=== PATIENT | female | born 1950 | race Caucasian/White ===

== ENCOUNTER 2017-03-06 12:54 | Observation (INO) | payer MEDICARE ==
--- NOTE | 2017-03-06 13:30 | ED ---
General Adult HPI - General Chief complaint: Arrhythmia/Palpitations Stated complaint: Irregular Heartbeat/Tachycardia Time Seen by Provider: 03/06/17 13:18 Source: patient, family, RN notes reviewed Mode of arrival: ambulatory Limitations: no limitations - History of Present Illness Initial comments: Patient is a pleasant 66-year-old female presenting to the emergency Department with complaints of palpitations. Symptoms have been ongoing for around 10 days. Patient did see her doctor and was placed on the monitor. Monitor reports today did show patient had an episode of atrial fibrillation. Patient did have some associated jaw pain today which she is not having quite a while. Patient took one nitro that resolved the jaw pain. Patient is currently symptom -free. - Related Data Home Medications Medication Instructions Recorded Confirmed Aspirin 81 mg PO DAILY 12/31/13 03/06/17 Atenolol [Tenormin] 25 mg PO DAILY 12/31/13 03/06/17 Atorvastatin [Lipitor] 80 mg PO DAILY 03/06/17 03/06/17 Ipratropium/Albuterol Sulfate 1 puff INHALATION RT-QID PRN 03/06/17 03/06/17 [Combivent Respimat Inhaler] Levothyroxine Sodium [Synthroid] 137 mcg PO DAILY 03/06/17 03/06/17 Meloxicam [Mobic] 7.5 mg PO DAILY PRN 03/06/17 03/06/17 Multivitamins, Thera [Multivitamin 1 tab PO DAILY 03/06/17 03/06/17 (formulary)] Nitroglycerin Sl Tabs [Nitrostat] 0.4 mg SUBLINGUAL Q5M PRN 03/06/17 03/06/17 amLODIPine BESYLATE/BENAZEPRIL 1 cap PO DAILY 03/06/17 03/06/17 [amLODIPine BESYLATE/BENAZEPRIL 10-20 mg] Allergies Allergy/AdvReac Type Severity Reaction Status Date / Time No Known Allergies Allergy Verified 03/06/17 13:29 Review of Systems ROS Statement: Those systems with pertinent positive or pertinent negative responses have been documented in the HPI. ROS Other: All systems not noted in ROS Statement are negative. Constitutional: Denies: fever Eyes: Denies: eye pain ENT: Denies: ear pain Respiratory: Denies: cough Cardiovascular: Reports: chest pain, palpitations Endocrine: Reports: fatigue Gastrointestinal: Denies: abdominal pain Genitourinary: Denies: dysuria Musculoskeletal: Denies: back pain Skin: Denies: rash Neurological: Denies: weakness Past Medical History Past Medical History: Hypertension, Myocardial Infarction (SD) History of Any Multi-Drug Resistant Organisms: None Reported Past Surgical History: Appendectomy, Cholecystectomy, Heart Catheterization With Stent, Hysterectomy Past Psychological History: No Psychological Hx Reported Smoking Status: Former smoker Past Alcohol Use History: Occasional Past Drug Use History: None Reported General Exam Limitations: no limitations General appearance: alert, in no apparent distress Head exam: Present: atraumatic Eye exam: Present: normal appearance, PERRL ENT exam: Present: normal oropharynx Neck exam: Present: normal inspection Respiratory exam: Present: normal lung sounds bilaterally Cardiovascular Exam: Present: regular rate, normal rhythm Expanded Peripheral pulses: 2+: Radial (R), Radial (L), Dorsalis Pedis (R), Dorsalis Pedis (L) GI/Abdominal exam: Present: soft. Absent: tenderness Extremities exam: Present: normal inspection. Absent: pedal edema, calf tenderness Neurological exam: Present: alert Psychiatric exam: Present: normal affect, normal mood Skin exam: Present: normal color Course Vital Signs 03/06/17 03/06/17 13:01 14:03 Temperature 97.4 F L Pulse Rate 51 L 47 L Respiratory 18 16 Rate Blood Pressure 130/56 140/65 O2 Sat by Pulse 96 97 Oximetry EKG Findings - EKG Comments: EKG Findings:: Sinus bradycardia 48. For screening AV block TN 218. QRS 84. QT 448. QTC 400. Left axis. Inferior Q waves. Anterior Q waves. No acute ST change. Medical Decision Making - Medical Decision Making Patient reevaluated and resting comfortably in bed. Patient remained symptom- free at this time. Review from rhythm strips from Holter monitor does reveal atrial fibrillation, several episodes. Rate up to 150. Patient and family updated on results and plan. Case was discussed in detail with Dr. Marquez, who will admit for Dr. Mccullough. - Lab Data Result diagrams: 03/06/17 13:35 03/06/17 13:35 Lab Results 03/06/17 03/06/17 03/06/17 Range/Units 13:35 13:35 13:35 WBC 7.4 (3.8-10.6) k/uL RBC 4.76 (3.80-5.40) m/uL Hgb 14.1 (11.4-16.0) gm/dL Hct 42.7 (34.0-46.0) % MCV 89.7 (80.0-100.0) fL MCH 29.5 (25.0-35.0) pg MCHC 32.9 (31.0-37.0) g/dL RDW 13.0 (11.5-15.5) % Plt Count 317 (150-450) k/uL Neutrophils % 54 % Lymphocytes % 35 % Monocytes % 6 % Eosinophils % 2 % Basophils % 1 % Neutrophils # 4.0 (1.3-7.7) k/uL Lymphocytes # 2.6 (1.0-4.8) k/uL Monocytes # 0.5 (0-1.0) k/uL Eosinophils # 0.1 (0-0.7) k/uL Basophils # 0.1 (0-0.2) k/uL PT (9.0-12.0) sec INR (<1.2) APTT (22.0-30.0) sec Sodium 140 (137-145) mmol/L Potassium 4.4 (3.5-5.1) mmol/L Chloride 106 (98-107) mmol/L Carbon Dioxide 22 (22-30) mmol/L Anion Gap 12 mmol/L BUN 28 H (7-17) mg/dL Creatinine 0.82 (0.52-1.04) mg/dL Est GFR (MDRD) Af Amer >60 (>60 ml/min/1.73 sqM) Est GFR (MDRD) Non-Af >60 (>60 ml/min/1.73 sqM) Glucose 103 H (74-99) mg/dL Calcium 9.7 (8.4-10.2) mg/dL Magnesium 1.8 (1.6-2.3) mg/dL Total Bilirubin 0.4 (0.2-1.3) mg/dL AST 22 (14-36) U/L ALT 32 (9-52) U/L Alkaline Phosphatase 72 (38-126) U/L Total Creatine Kinase 62 (30-135) U/L CK-MB (CK-2) 1.4 (0.0-2.4) ng/mL CK-MB (CK-2) Rel Index 2.3 Troponin I <0.012 (0.000-0.034) ng/mL Total Protein 7.3 (6.3-8.2) g/dL Albumin 4.2 (3.5-5.0) g/dL TSH 2.400 (0.465-4.680) mIU/L Free T4 1.16 (0.78-2.19) ng/dL Free T3 pg/mL 3.4 (2.8-5.3) pg/ml 03/06/17 Range/Units 13:35 WBC (3.8-10.6) k/uL RBC (3.80-5.40) m/uL Hgb (11.4-16.0) gm/dL Hct (34.0-46.0) % MCV (80.0-100.0) fL MCH (25.0-35.0) pg MCHC (31.0-37.0) g/dL RDW (11.5-15.5) % Plt Count (150-450) k/uL Neutrophils % % Lymphocytes % % Monocytes % % Eosinophils % % Basophils % % Neutrophils # (1.3-7.7) k/uL Lymphocytes # (1.0-4.8) k/uL Monocytes # (0-1.0) k/uL Eosinophils # (0-0.7) k/uL Basophils # (0-0.2) k/uL PT 10.5 (9.0-12.0) sec INR 1.0 (<1.2) APTT 24.1 (22.0-30.0) sec Sodium (137-145) mmol/L Potassium (3.5-5.1) mmol/L Chloride (98-107) mmol/L Carbon Dioxide (22-30) mmol/L Anion Gap mmol/L BUN (7-17) mg/dL Creatinine (0.52-1.04) mg/dL Est GFR (MDRD) Af Amer (>60 ml/min/1.73 sqM) Est GFR (MDRD) Non-Af (>60 ml/min/1.73 sqM) Glucose (74-99) mg/dL Calcium (8.4-10.2) mg/dL Magnesium (1.6-2.3) mg/dL Total Bilirubin (0.2-1.3) mg/dL AST (14-36) U/L ALT (9-52) U/L Alkaline Phosphatase (38-126) U/L Total Creatine Kinase (30-135) U/L CK-MB (CK-2) (0.0-2.4) ng/mL CK-MB (CK-2) Rel Index Troponin I (0.000-0.034) ng/mL Total Protein (6.3-8.2) g/dL Albumin (3.5-5.0) g/dL TSH (0.465-4.680) mIU/L Free T4 (0.78-2.19) ng/dL Free T3 pg/mL (2.8-5.3) pg/ml - Radiology Data Radiology results: image reviewed (Chest x-ray shows no acute process.) Disposition Clinical Impression: Atrial fibrillation, Chest pain Disposition: ADMITTED IP TO THIS [facility] Referrals: Yosehp Mccullough MD [Primary Care Provider] - 1-2 days Decision Time: 15:16
[2017-03-06 13:47] LABS: Basophils # (A) 0.1 k/uL (0-0.2); Basophils % (A) 1 %; CHCM 33.6; Eosinophils # (A) 0.1 k/uL (0-0.7); Eosinophils % (A) 2 %; HCT 42.7 % (34.0-46.0); HDW 2.49; HGB 14.1 gm/dL (11.4-16.0); Luc # (Auto) 0.17; Luc % (Auto) 2; Lymphocytes # (A) 2.6 k/uL (1.0-4.8); Lymphocytes % (A) 35 %; MCH 29.5 pg (25.0-35.0); MCHC 32.9 g/dL (31.0-37.0); MCV 89.7 fL (80.0-100.0); Monocytes # (A) 0.5 k/uL (0-1.0); Monocytes % (A) 6 %; Neutrophils % (A) 54 %; RBC 4.76 m/uL (3.80-5.40); WBC 7.4 k/uL (3.8-10.6); WBC (Perox) 7.32
[2017-03-06 13:56] LABS: ALT 32 U/L (9-52); AST 22 U/L (14-36); Alkaline Phosphatase 72 U/L (38-126); Anion Gap 12 mmol/L; Blood Urea Nitrogen 28 mg/dL (7-17); Calcium 9.7 mg/dL (8.4-10.2); Carbon Dioxide 22 mmol/L (22-30); Chloride 106 mmol/L (98-107); Glucose 103 mg/dL (74-99); Magnesium 1.8 mg/dL (1.6-2.3); Non-African American GFR(MDRD) >60 (>60 ml/min/1.73 sqM); Partial Thromboplastin Time 24.1 sec (22.0-30.0); Potassium 4.4 mmol/L (3.5-5.1); Prothrombin Time 10.5 sec (9.0-12.0); Sodium 140 mmol/L (137-145); Total Bilirubin 0.4 mg/dL (0.2-1.3); Total Protein 7.3 g/dL (6.3-8.2)
--- NOTE | 2017-03-06 14:06 | XR ---
EXAMINATION TYPE: XR chest 2V DATE OF EXAM: 03/06/2017 COMPARISON: NONE TECHNIQUE: PA and lateral views submitted. HISTORY: Dysrhythmia FINDINGS: The lungs are clear and there is no pneumothorax, pleural effusion, or focal pneumonia. Atheroscler otic change aorta. Biapical pleural thickening. Hypertrophic change of the spine. Surgical clips in t he abdomen noted. IMPRESSION: 1. No acute process.
[2017-03-06 14:12] LABS: Creatine Kinase 62 U/L (30-135)
[2017-03-06 14:24] LABS: Creatine Kinase MB 1.4 ng/mL (0.0-2.4); Troponin I <0.012 ng/mL (0.000-0.034)
[2017-03-06] MEDS ORDERED: NITROGLYCERIN SL TABS 0.4 MG TAB SUBLINGUAL PRN ×2 (15:16→18:43)
[2017-03-06] MEDS ORDERED: HEPARIN SODIUM,PORCINE 5,000 UNIT/ML 1 ML VIAL IV ONE (15:16)
[2017-03-06] MEDS ORDERED: HEPARIN SODIUM,PORCINE 5,000 UNIT/ML 1 ML VIAL IV PRN (15:16)
[2017-03-06] MEDS ORDERED: SODIUM CHLORIDE 0.9% 1,000 ML IV STA (15:28)
[2017-03-06] MEDS ORDERED: HEPARIN SODIUM,PORCINE/D5W PMX 25,000 UNIT in DEXTROSE/WATER 1 500ML.BAG IV SCH (15:30)
--- NOTE | 2017-03-06 18:06 | P.HPIM ---
History of Present Illness H&P Date: 03/06/17 Chief Complaint: palpitation This is a 66 years old very pleasant female patient of Dr. Barney with past medical history of coronary artery disease status post stent in 2004 and 2006, hypertension presents with episodes of palpitation associated with shortness of breath and dizziness the last few minutes, occur spontaneously and resolved by itself worsens with laying flat. Patient was seen by the primary care physician who placed her on event monitor that recorded atrial fibrillation last night when patient was symptomatic. Dr. Barney office call the patient and asked her to report to the ER. 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 She denies any chest pain, shortness of breath, swelling in her extremities. ED reported EKG showing Q waves in lead V1 to V5 with sinus bradycardia and first-degree AV block. potline monitor did show atrial fibrillation with a heart rate of 150 intermittently. Patient was started on heparin drip. Troponin 3 ordered. Cardiology consulted Review of Systems Constitutional: Denies chills, Denies fever, Denies lethargy, Denies malaise, Denies poor appetite, Denies weakness, Denies weight loss Eyes: denies decreased vision, denies diplopia, denies discharge, denies pain Ears: deny: decreased hearing Ears, nose, mouth and throat: Denies dental pain, Denies headache, Denies nasal discharge, Denies nose pain Cardiovascular: Denies chest pain, Denies decreased exercise tolerance, Denies edema, Denies high blood pressure, endorses irregular heart beat, endorses palpitations, Denies paroxysmal nocturnal dyspnea, Respiratory: Denies congestion, Denies cough, Denies cough with sputum, Denies dyspnea, Denies home oxygen, Denies wheezing Gastrointestinal: Denies abdominal pain, Denies change in bowel habits, Denies coffee ground emesis, Denies early satiety, Denies excessive gas, Denies heartburn, Denies hematemesis, Denies hematochezia, Denies loss of appetite, Denies nausea, Denies vomiting Genitourinary: Denies dysuria, Denies flank pain, Denies kidney stones, Denies menorrhagia, Denies urgency, Denies urinary frequency Musculoskeletal: Denies gait dysfunction, Denies limitation of motion, Denies morning stiffness, Denies muscle cramps Integumentary: Denies rash, Denies wounds, Denies brittle nails, Denies change in hair/nails, Denies darkening of skin Neurological: Denies balance difficulties, Denies change in speech, Denies double vision, Denies gait dysfunction, Denies loss of vision, Denies motor disturbance, Denies numbness, Denies paralysis, Denies paresthesias, Denies seizures Psychiatric: Denies anxiety, Denies depression Endocrine: Denies excessive sweating, Denies excessive thirst, Denies high blood sugars, Denies palpitations Hematologic/Lymphatic: Denies easy bruising, Denies lymphadenopathy Past Medical History Past Medical History: Hypertension, Myocardial Infarction (ND) (2004 and 2006) History of Any Multi-Drug Resistant Organisms: None Reported Past Surgical History: Appendectomy, Cholecystectomy, Heart Catheterization With Stent, Hysterectomy Past Psychological History: No Psychological Hx Reported Smoking Status: Former smoker (N 2005, smoked 1 pack in 3 days for 20 years) Past Alcohol Use History: Occasional Past Drug Use History: None Reported - Past Family History Father Family Medical History: Congestive Heart Failure (CHF), Hypertension Mother Family Medical History: Cancer Brother(s) Family Medical History: CVA/TIA Sister(s) Family Medical History: Hypertension Medications and Allergies Home Medications Medication Instructions Recorded Confirmed Type Aspirin 81 mg PO DAILY 12/31/13 03/06/17 History Atenolol [Tenormin] 25 mg PO DAILY 12/31/13 03/06/17 History Atorvastatin [Lipitor] 80 mg PO DAILY 03/06/17 03/06/17 History Ipratropium/Albuterol Sulfate 1 puff INHALATION RT-QID PRN 03/06/17 03/06/17 History [Combivent Respimat Inhaler] Levothyroxine Sodium [Synthroid] 137 mcg PO DAILY 03/06/17 03/06/17 History Meloxicam [Mobic] 7.5 mg PO DAILY PRN 03/06/17 03/06/17 History Multivitamins, Thera [Multivitamin 1 tab PO DAILY 03/06/17 03/06/17 History (formulary)] Nitroglycerin Sl Tabs [Nitrostat] 0.4 mg SUBLINGUAL Q5M PRN 03/06/17 03/06/17 History amLODIPine BESYLATE/BENAZEPRIL 1 cap PO DAILY 03/06/17 03/06/17 History [amLODIPine BESYLATE/BENAZEPRIL 10-20 mg] Allergies Allergy/AdvReac Type Severity Reaction Status Date / Time No Known Allergies Allergy Verified 03/06/17 13:29 Physical Exam Vitals: Vital Signs Temp Pulse Pulse Resp BP BP Pulse Ox 03/06/17 16:19 97.1 F L 55 L 16 119/58 97 03/06/17 15:25 97.8 F 49 L 16 119/70 98 03/06/17 14:03 47 L 16 140/65 97 03/06/17 13:01 97.4 F L 51 L 18 130/56 96 Intake and Output 03/06/17 03/06/17 03/06/17 06:59 14:59 22:59 Intake Total 100 Balance 100 Intake: Oral 100 Other: Voiding Method Toilet Weight 72.575 kg Patient Weight 03/07/17 06:59 Weight 72.575 kg - Constitutional General appearance: cooperative, no acute distress, obese - EENT Eyes: anicteric sclerae, PERRLA, normal appearance ENT: hearing grossly normal - Neck Neck: no lymphadenopathy, normal ROM, no other, no rigidity, no stridor, no thyromegaly - Respiratory Respiratory: bilateral: CTA, negative: diminished, dullness, rales, rhonchi - Cardiovascular Rhythm: regular in sinus bradycardia Heart sounds: normal: S1, S2 Abnormal Heart Sounds: no systolic murmur, no diastolic murmur, no rub, no S3 Gallop, no S4 Gallop, no click, no other - Gastrointestinal General gastrointestinal: normal bowel sounds, soft - Integumentary Integumentary: no rash - Neurologic Neurologic: CNII-XII intact - Musculoskeletal Musculoskeletal: gait normal, strength equal bilaterally - Psychiatric Psychiatric: A&O x's 3, appropriate affect Results CBC & Chem 7: 03/06/17 13:35 03/06/17 13:35 Labs: Abnormal Lab Results - Last 24 Hours (Table) 03/06/17 Range/Units 13:35 BUN 28 H (7-17) mg/dL Glucose 103 H (74-99) mg/dL Thrombosis Risk Factor Assmnt - DVT/VTE Prophylaxis DVT/VTE Prophylaxis: Pharmacologic Prophylaxis ordered Assessment and Plan Plan: #1 palpitation with paroxysmal fibrillation alternating with sinus bradycardia concern for sick sinus syndrome, cardiology evaluation pending, EKG suggests sinus bradycardia with first-degree AV block, continue heparin, echo ordered. Patient may need to be anticoagulated on discharge #2 hypertension- continue lotril #3 CAD s/p stent - continue aspirin, hold atenol due to bradycardia #4 HLD - Continue lipitor #5 DVT prophylaxis - on heparin drip #6 Code - Full code Patient may need 1-2 night as inpatient
[2017-03-06] MEDS ORDERED: MELOXICAM 7.5 MG TAB PO PRN (18:43)
[2017-03-06] MEDS ORDERED: IPRATROPIUM-ALBUTEROL 3 ML NEB INHALATION PRN (18:43)
[2017-03-06] MEDS: NITROGLYCERIN OINT 1 INCH/GM PACKET TOPICAL SCH ×2 (18:53→23:48)
[2017-03-06 21:20] LABS: Creatine Kinase 50 U/L (30-135)
[2017-03-06 21:34] LABS: Troponin I <0.012 ng/mL (0.000-0.034)
[2017-03-07 02:30] LABS: Creatine Kinase 42 U/L (30-135)
[2017-03-07 02:42] LABS: Troponin I <0.012 ng/mL (0.000-0.034)
[2017-03-07 03:08] LABS: Creatine Kinase MB 0.8 ng/mL (0.0-2.4)
[2017-03-07 04:14] LABS: CH 29.5; CHCM 32.1; HCT 39.1 % (34.0-46.0); HDW 2.32; HGB 12.6 gm/dL (11.4-16.0); MCH 29.8 pg (25.0-35.0); MCHC 32.2 g/dL (31.0-37.0); MCV 92.7 fL (80.0-100.0); Mean Platelet Volume 7.9; RBC 4.22 m/uL (3.80-5.40); RDW 14.2 % (11.5-15.5); WBC 7.2 k/uL (3.8-10.6)
[2017-03-07 04:40] LABS: ALT 31 U/L (9-52); AST 36 U/L (14-36); Alkaline Phosphatase 67 U/L (38-126); Anion Gap 8 mmol/L; Blood Urea Nitrogen 27 mg/dL (7-17); Calcium 9.2 mg/dL (8.4-10.2); Carbon Dioxide 23 mmol/L (22-30); Chloride 109 mmol/L (98-107); Cholesterol 154 mg/dL (<200); Glucose 99 mg/dL (74-99); HDL Cholesterol 57 mg/dL (40-60); Non-African American GFR(MDRD) >60 (>60 ml/min/1.73 sqM); Sodium 140 mmol/L (137-145); Total Bilirubin 0.4 mg/dL (0.2-1.3); Total Protein 6.1 g/dL (6.3-8.2)
[2017-03-07] MEDS: NITROGLYCERIN OINT 1 INCH/GM PACKET TOPICAL SCH (05:55)
[2017-03-07] MEDS ORDERED: LEVOTHYROXINE 137 MCG TAB PO SCH (06:30)
[2017-03-07] MEDS ORDERED: ATORVASTATIN 80 MG TAB PO SCH (09:00)
[2017-03-07] MEDS ORDERED: ASPIRIN 325 MG TAB PO SCH (09:00)
[2017-03-07] MEDS ORDERED: ASPIRIN 81 MG PO SCH (09:00)
[2017-03-07 10:14] VITALS: TEMP 97.1
--- NOTE | 2017-03-07 11:36 | ECHOF ---
Referral Reason:afib, assess heart function MEASUREMENTS -------- HEIGHT: 172.7 cm WEIGHT: 73.0 kg BP: 119/58 RVIDd: 2.8 cm (< 3.3) IVSd: 0.8 cm (0.6 - 1.1) LVIDd: 4.7 cm (3.9 - 5.3) LVPWd: 1.2 cm (0.6 - 1.1) IVSs: 1.4 cm LVIDs: 3.9 cm LVPWs: 1.2 cm LA Diam: 3.7 cm (2.7 - 3.8) LAESV Index (A-L): 36.81 ml/m Ao Diam: 2.5 cm (2.0 - 3.7) AV Cusp: 1.5 cm (1.5 - 2.6) LA Diam: 4.2 cm (2.7 - 3.8) MV EXCURSION: 25.813 mm (> 18.000) MV EF SLOPE: 97 mm/s (70 - 150) EPSS: 0.3 cm MV E Sid: 0.55 m/s MV DecT: 336 ms MV A Sid: 0.74 m/s MV E/A Ratio: 0.74 RAP: 5.00 mmHg RVSP: 17.01 mmHg FINDINGS -------- Sinus rhythm. This was a technically good study. LV size, wall thickness and systolic function are normal, with an EF greater than 55%. The left nano tricular size is normal. The right ventricle is normal in size. LA is moderately dilated 34-39 ml/m2 The right atrial size is normal. The aortic valve is trileaflet, and appears structurally normal. No aortic stenosis or regurgitation. Mild mitral regurgitation is present. Mild tricuspid regurgitation present. There is no evidence of pulmonary hypertension. The right v entricular systolic pressure, as measured by Doppler, is 17.01mmHg. There is no pulmonic regurgitation present. The aortic root size is normal. There is no pericardial effusion. CONCLUSIONS -------- 1. LV size, wall thickness and systolic function are normal, with an EF greater than 55%. 2. The left ventricular size is normal. 3. LA is moderately dilated 34-39 ml/m2 4. The aortic valve is trileaflet, and appears structurally normal. No aortic stenosis or regurgitati on. 5. Mild mitral regurgitation is present. 6. Mild tricuspid regurgitation present. 7. There is no evidence of pulmonary hypertension. 8. The right ventricular systolic pressure, as measured by Doppler, is 17.01mmHg. 9. There is no pulmonic regurgitation present. 10. The aortic root size is normal. 11. There is no pericardial effusion. BLUE LINE TRIMMER: Sandi Hunter RDCS
--- NOTE | 2017-03-07 11:44 | P.CRDCN ---
History of Present Illness Consult date: 03/07/17 Requesting physician: Jessica Kraus Consult reason: chest pain, atrial fibrillation Chief complaint: Palpitations, chest discomfort History of present illness: This is a pleasant 66-year-old female with history of hypertension, hyperlipidemia, hypothyroidism, coronary artery disease with prior stent placement in 2004, 2 stents were also placed in 2006. 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 She does state that her most recent stress test was performed in November of this year. Patient had been experiencing intermittent symptoms of palpitations and heart racing, and for this reason her primary care physician had recommended that she wear an event monitor. She is approximately 10 days into the event monitor, when she received a call from her physician's office stating that she needed to come to the emergency room because her heart was irregular. On review of the event monitor tracings it does appear that the patient is having intermittent episodes of atrial fibrillation, her heart rate however when she is in normal sinus rhythm is quite slow. Patient also states that a couple of days ago she was experiencing some pressure in her chest with radiation to her jaw, she states that she gets these symptoms off and on. EKG on presentation here showed a sinus bradycardia with a first-degree AV block. Chest x-ray did not reveal any acute process. Blood pressure 130/56, heart rate in the 40s to 50s, 96% on room air. White blood cell count 7.2, hemoglobin 12.6, platelet count 252. Sodium 140, potassium 4.0, chloride 109, CO2 23, BUN 27, creatinine 0.9. Troponins have been negative 3. TSH 2.4, free T4 1.1. At the time of our examination this morning, patient denies any palpitations, no chest discomfort, breathing is overall stable. Past Medical History Past Medical History: Hypertension, Myocardial Infarction ([place]) (2004 and 2006) Additional Past Medical History / Comment(s): HAD EVENT MONITOR PRIOR TO ADMISSION TO MONITOR FOR AFIB Last Myocardial Infarction Date:: 2004 History of Any Multi-Drug Resistant Organisms: None Reported Past Surgical History: Appendectomy, Cholecystectomy, Heart Catheterization With Stent, Hysterectomy Past Anesthesia/Blood Transfusion Reactions: Postoperative Nausea & Vomiting ( PONV) Date of Last Stent Placement:: 2006 Past Psychological History: No Psychological Hx Reported Smoking Status: Former smoker (N 2004, smoked 1 pack in 3 days for 20 years) Past Alcohol Use History: Occasional Past Drug Use History: None Reported - Past Family History Father Family Medical History: Congestive Heart Failure (CHF), Hypertension Mother Family Medical History: Cancer Brother(s) Family Medical History: CVA/TIA Sister(s) Family Medical History: Hypertension Medications and Allergies Home Medications Medication Instructions Recorded Confirmed Type Aspirin 81 mg PO DAILY 12/31/13 03/06/17 History Atenolol [Tenormin] 25 mg PO DAILY 12/31/13 03/06/17 History Atorvastatin [Lipitor] 80 mg PO DAILY 03/06/17 03/06/17 History Ipratropium/Albuterol Sulfate 1 puff INHALATION RT-QID PRN 03/06/17 03/06/17 History [Combivent Respimat Inhaler] Levothyroxine Sodium [Synthroid] 137 mcg PO DAILY 03/06/17 03/06/17 History Meloxicam [Mobic] 7.5 mg PO DAILY PRN 03/06/17 03/06/17 History Multivitamins, Thera [Multivitamin 1 tab PO DAILY 03/06/17 03/06/17 History (formulary)] Nitroglycerin Sl Tabs [Nitrostat] 0.4 mg SUBLINGUAL Q5M PRN 03/06/17 03/06/17 History amLODIPine BESYLATE/BENAZEPRIL 1 cap PO DAILY 03/06/17 03/06/17 History [amLODIPine BESYLATE/BENAZEPRIL 10-20 mg] Allergies Allergy/AdvReac Type Severity Reaction Status Date / Time No Known Allergies Allergy Verified 03/06/17 13:29 Physical Exam Vitals: Vital Signs Temp Pulse Pulse Resp BP BP Pulse Ox 03/07/17 08:00 97.1 F L 49 L 17 129/63 97 03/07/17 04:00 97.8 F 50 L 16 106/52 97 03/07/17 00:00 97.3 F L 51 L 16 106/56 96 03/06/17 20:00 97.7 F 50 L 16 133/66 94 L 03/06/17 16:19 97.1 F L 55 L 16 119/58 97 03/06/17 15:25 97.8 F 49 L 16 119/70 98 03/06/17 14:03 47 L 16 140/65 97 03/06/17 13:01 97.4 F L 51 L 18 130/56 96 Intake and Output 03/06/17 03/07/17 03/07/17 22:59 06:59 14:59 Intake Total 100 540.584 20 Balance 100 540.584 20 Intake: Intake, IV Titration 420.584 20 Amount Heparin Sodium,Porcine/ 320.584 D5w Pmx 25,000 unit In Dextrose/Water 1 500ml. bag @ 12 UNITS/KG/HR 17. 41 mls/hr IV .Q24H MICHELE Rx #:[id number] Sodium Chloride 0.9% 1, 100 20 000 ml @ 20 mls/hr IV . Q24H STA Rx#:[id number] Oral 100 120 Other: Voiding Method Toilet Toilet # Voids 1 Weight 73.3 kg PHYSICAL EXAMINATION: HEENT: Head is atraumatic, normocephalic. Pupils equal, round. Neck is supple. There is no elevated jugular venous pressure. HEART EXAMINATION: Heart S1, S2 normal. No murmur or gallop heard. CHEST EXAMINATION: Lungs are clear to auscultation and precussion. No chest wall tenderness is noted on palpation or with deep breathing. ABDOMEN: Soft, nontender. Bowel sounds are heard. No organomegaly noted. EXTREMITIES: 2+ peripheral pulses with no evidence of peripheral edema and no calf tenderness noted. NEUROLOGIC patient is awake, alert and oriented -3. . Results 03/07/17 03:53 03/07/17 03:53 Cardiac Enzymes 03/06/17 03/06/17 03/06/17 Range/Units 13:35 13:35 20:18 AST 22 (14-36) U/L CK-MB (CK-2) 1.4 1.0 (0.0-2.4) ng/mL Troponin I <0.012 <0.012 (0.000-0.034) ng/mL 03/07/17 03/07/17 Range/Units 01:55 03:53 AST 36 (14-36) U/L CK-MB (CK-2) 0.8 (0.0-2.4) ng/mL Troponin I <0.012 (0.000-0.034) ng/mL Coagulation 03/06/17 03/06/17 03/07/17 Range/Units 13:35 21:44 03:53 PT 10.5 (9.0-12.0) sec APTT 24.1 55.1 H 45.6 H (22.0-30.0) sec 03/07/17 Range/Units 09:36 PT (9.0-12.0) sec APTT 51.9 H (22.0-30.0) sec Lipids 03/07/17 Range/Units 03:53 Triglycerides 79 (<150) mg/dL Cholesterol 154 (<200) mg/dL HDL Cholesterol 57 (40-60) mg/dL CBC 03/06/17 03/07/17 Range/Units 13:35 03:53 WBC 7.4 7.2 (3.8-10.6) k/uL RBC 4.76 4.22 (3.80-5.40) m/uL Hgb 14.1 12.6 (11.4-16.0) gm/dL Hct 42.7 39.1 (34.0-46.0) % Plt Count 317 252 (150-450) k/uL Comprehensive Metabolic Panel 03/06/17 03/07/17 Range/Units 13:35 03:53 Sodium 140 140 (137-145) mmol/L Potassium 4.4 4.0 (3.5-5.1) mmol/L Chloride 106 109 H (98-107) mmol/L Carbon Dioxide 22 23 (22-30) mmol/L BUN 28 H 27 H (7-17) mg/dL Creatinine 0.82 0.90 (0.52-1.04) mg/dL Glucose 103 H 99 (74-99) mg/dL Calcium 9.7 9.2 (8.4-10.2) mg/dL AST 22 36 (14-36) U/L ALT 32 31 (9-52) U/L Alkaline Phosphatase 72 67 (38-126) U/L Total Protein 7.3 6.1 L (6.3-8.2) g/dL Albumin 4.2 3.4 L (3.5-5.0) g/dL Current Medications Generic Name Dose Route Start Last Admin Trade Name Freq PRN Reason Stop Dose Admin Albuterol/Ipratropium 3 ml 03/06/17 18:43 Duoneb 0.5 Mg-3 Mg/3 Ml Soln INHALATION RT-QID PRN sob Aspirin 81 mg 03/07/17 09:00 03/07/17 10:02 Aspirin PO 81 mg DAILY MICHELE Administration Atorvastatin Calcium 80 mg 03/07/17 09:00 03/07/17 10:02 Lipitor PO 80 mg DAILY MICHELE Administration Heparin Sodium (Porcine) 0 unit 03/06/17 15:16 Heparin IV Q6HR PRN Low PTT Protocol Heparin Sodium/Dextrose 25,000 500 mls @ 17.41 mls/hr 03/06/17 15:30 05:02 unit/ IV Solution IV 14 units/kg/hr .Q24H MICHELE 20.32 mls/hr Protocol Titration 12 UNITS/KG/HR Sodium Chloride 1,000 mls @ 20 mls/hr 03/06/17 15:28 03/06/17 15:36 Saline 0.9% IV 03/07/17 15:27 20 mls/hr .Q24H STA Administration Levothyroxine Sodium 137 mcg 03/07/17 06:30 03/07/17 06:25 Synthroid PO 137 mcg DAILY@0630 [facility] Administration Meloxicam 7.5 mg 03/06/17 18:43 Mobic PO DAILY PRN Pain Multivitamins 1 each 03/07/17 12:00 Theragran PO DAILY@1200 [facility] Nitroglycerin 0.4 mg 03/06/17 18:43 Nitrostat SUBLINGUAL Q5M PRN Chest Pain Intake and Output 03/06/17 03/07/17 03/07/17 22:59 06:59 14:59 Intake Total 100 540.584 20 Balance 100 540.584 20 Intake: Intake, IV Titration 420.584 20 Amount Heparin Sodium,Porcine/ 320.584 D5w Pmx 25,000 unit In Dextrose/Water 1 500ml. bag @ 12 UNITS/KG/HR 17. 41 mls/hr IV .Q24H MICHELE Rx #:[id number] Sodium Chloride 0.9% 1, 100 20 000 ml @ 20 mls/hr IV . Q24H STA Rx#:[id number] Oral 100 120 Other: Voiding Method Toilet Toilet # Voids 1 Weight 73.3 kg 03/07/17 03:53 03/07/17 03:53 EKG Interpretations (text) EKG shows a sinus bradycardia with first-degree AV block Assessment and Plan Plan: Assessment and plan #1 atrial fibrillation, new onset, paroxysmal in nature. #2 known history of coronary artery disease with prior stent placement in 2004 in 2006 #3 hypertension history #4 hyperlipidemia #5 hypothyroidism Plan We will obtain an echocardiogram with Doppler study. We will also discontinue the patient's IV heparin and start the patient on Eliquis 5 mg one tablet by mouth twice a day. We will discontinue her atenolol and start the patient on Lopressor 12-1/2 mg one tablet by mouth twice a day. Decrease Lipitor to 40 mg daily, discontinue Mobic, continue baby aspirin daily, obtain results of stress test performed at [facility] in November, we will also start the patient on Rythmol 150 mg by mouth twice a day. She was seen in consultation by DR KEATON Zafar, patient was told she may be able to be discharged home later today to follow-up with him in the office one week post discharge. DNP note has been reviewed, I agree with a documented findings and plan of care. Patient was seen and examined.
[2017-03-07] MEDS ORDERED: APIXABAN 5 MG TAB PO SCH (11:45)
[2017-03-07] MEDS ORDERED: METOPROLOL TARTRATE 12.5 MG TAB PO SCH (11:45)
[2017-03-07] MEDS ORDERED: PROPAFENONE 150 MG TAB PO SCH (11:45)
[2017-03-07] MEDS ORDERED: MULTIVITAMINS, THERA 1 EACH TAB PO SCH (12:00)
[2017-03-07 13:37] VITALS: BP 129/53; PULSE 58; RESP 18
--- NOTE | 2017-03-07 13:47 | P.DS ---
Providers Date of admission: 03/06/17 15:18 Expected date of discharge: 03/07/17 Attending physician: Jessica Kraus MD Consults: 03/06/17 15:16 Consult Physician Urgent Consulting Provider: Jun Flannery Consult Reason/Comments: a fib, cp Do you want consulting provider notified?: Yes Primary care physician: [facility] Course: This is a 66 years old very pleasant female patient of Dr. Barney with past medical history of coronary artery disease status post stent in 2004 and 2006, hypertension presents with episodes of palpitation associated with shortness of breath and dizziness the last few minutes, occur spontaneously and resolved by itself worsens with laying flat. Patient was seen by the primary care physician who placed her on event monitor that recorded atrial fibrillation last night when patient was symptomatic. Dr. Barney office call the patient and asked her to report to the ER. Patient states that she cannot do anything when she has the symptoms and has not seen a rayon tester recently. She denies any chest pain, shortness of breath, swelling in her extremities. ED reported EKG showing Q waves in lead V1 to V5 with sinus bradycardia and first-degree AV block. playground monitor did show atrial fibrillation with a heart rate of 150 intermittently. Patient was started on heparin drip. Troponin 3 ordered. Cardiology consulted 03/07: Echocardiogram reveals EF of 55%, LA moderately dilated at 34-39, mild mitral regurgitation, mild tricuspid regurgitation. No pulmonary hypertension. Troponins have been negative on 3 draws. Triglycerides 79, cholesterol 154, LDL 81, HDL 57. TSH was normal at 2.4 Patient has been seen by cardiology and heparin drip was discontinued. Patient started on eliquis 5 mg twice daily. Atenolol was discontinued and patient started on Lopressor 12.5 mg twice daily, Rythmol 150 mg twice daily. Lipitor was decreased from 80 mg to 40 mg. Patient 's continue baby aspirin and Mobic was discontinued. Patient has converted to sinus rhythm. Patient denies any complaints at this time. No chest pain, shortness of breath, lightheadedness or dizziness. Patient will be discharged home today in stable condition. Discharge diagnoses: #1 palpitation with paroxysmal fibrillation alternating with sinus bradycardia with first-degree AV block #2 hypertension #3 CAD s/p stent #4 HLD Discharge plan: Home Impression and plan of care have been directed as dictated by the signing physician. Allyn Crouch nurse practitioner acting as scribe for signing physician.t Patient Condition at Discharge: Good Plan - Discharge Summary Discharge Rx Participant: No New Discharge Prescriptions: New Apixaban [Eliquis] 5 mg PO BID #60 tab Atorvastatin [Lipitor] 40 mg PO HS #30 tab Metoprolol Tartrate [Lopressor] 12.5 mg PO BID #60 tab Propafenone [Rythmol] 150 mg PO BID #60 tab Continue Aspirin 81 mg PO DAILY Nitroglycerin Sl Tabs [Nitrostat] 0.4 mg SUBLINGUAL Q5M PRN PRN Reason: Chest Pain Multivitamins, Thera [Multivitamin (formulary)] 1 tab PO DAILY Ipratropium/Albuterol Sulfate [Combivent Respimat Inhaler] 1 puff INHALATION RT-QID PRN PRN Reason: sob amLODIPine BESYLATE/BENAZEPRIL [amLODIPine BESYLATE/BENAZEPRIL 10-20 mg] 1 cap PO DAILY Levothyroxine Sodium [Synthroid] 137 mcg PO DAILY Discontinued Atenolol [Tenormin] 25 mg PO DAILY Meloxicam [Mobic] 7.5 mg PO DAILY PRN PRN Reason: Pain Atorvastatin [Lipitor] 80 mg PO DAILY Discharge Medication List Aspirin 81 mg PO DAILY 12/31/13 [History] Ipratropium/Albuterol Sulfate [Combivent Respimat Inhaler] 1 puff INHALATION RT- QID PRN 03/06/17 [History] Levothyroxine Sodium [Synthroid] 137 mcg PO DAILY 03/06/17 [History] Multivitamins, Thera [Multivitamin (formulary)] 1 tab PO DAILY 03/06/17 [History ] Nitroglycerin Sl Tabs [Nitrostat] 0.4 mg SUBLINGUAL Q5M PRN 03/06/17 [History] amLODIPine BESYLATE/BENAZEPRIL [amLODIPine BESYLATE/BENAZEPRIL 10-20 mg] 1 cap PO DAILY 03/06/17 [History] Apixaban [Eliquis] 5 mg PO BID #60 tab 03/07/17 [Rx] Atorvastatin [Lipitor] 40 mg PO HS #30 tab 03/07/17 [Rx] Metoprolol Tartrate [Lopressor] 12.5 mg PO BID #60 tab 03/07/17 [Rx] Propafenone [Rythmol] 150 mg PO BID #60 tab 03/07/17 [Rx] Follow up Appointment(s)/Referral(s): [facility] [Provider Group] - 1 Week Yoseph Mccullough MD [Primary Care Provider] - 1 Week Discharge Disposition: HOME SELF-CARE
[2017-03-07] MEDS ORDERED: ATORVASTATIN 40 MG TAB PO SCH (21:00)
== END 2017-03-07 15:41 | disposition home or self-care (01) ==
LOC: EC 12:54 → 6SEL 15:18
PROVIDERS: ADMIT Internal Medicine; ATTEND Internal Medicine
DX: I48.0 Paroxysmal atrial fibrillation (principal); I44.0 Atrioventricular block, first degree; I10 Essential (primary) hypertension; I25.10 Atherosclerotic heart disease of native coronary artery without angina pectoris; Z95.5 Presence of coronary angioplasty implant and graft; E03.9 Hypothyroidism, unspecified; E78.5 Hyperlipidemia, unspecified; R68.84 Jaw pain; I25.2 Old myocardial infarction; Z79.899 Other long term (current) drug therapy; Z79.82 Long term (current) use of aspirin; Z87.891 Personal history of nicotine dependence
CPT/HCPCS: 99285; 96376 ×2; 96366 ×2; 96365; 36415; 93005; 93306; 84439; 84481; 80061; 80053 ×2; 82550 ×2; 82553 ×2; 83735; 84443; 84484 ×2; 85025; 85027; 85049; 85610; 85730 ×2; 71020; G0378 ×2; J1644 ×2

== ENCOUNTER 2017-11-25 15:23 | Emergency (ER) | payer MEDICARE ==
--- NOTE | 2017-11-25 17:01 | XR ---
EXAMINATION TYPE: XR chest 2V DATE OF EXAM: 11/25/2017 COMPARISON: 03/06/2017 INDICATION: Syncope TECHNIQUE: Frontal and lateral views of the chest are obtained. FINDINGS: The heart size is normal. The pulmonary vasculature is normal. The lungs are clear. EKG leads overlie the chest. IMPRESSION: 1. No acute pulmonary process.
[2017-11-25 17:10] LABS: Basophils % (A) 0 %; Eosinophils # (A) 0.1 k/uL (0-0.7); Eosinophils % (A) 1 %; HGB 13.9 gm/dL (11.4-16.0); Lymphocytes # (A) 1.9 k/uL (1.0-4.8); Lymphocytes % (A) 23 %; MCH 28.4 pg (25.0-35.0); MCHC 32.2 g/dL (31.0-37.0); MCV 88.1 fL (80.0-100.0); Mean Platelet Volume 7.2; Monocytes # (A) 0.5 k/uL (0-1.0); Monocytes % (A) 5 %; Neutrophils # (A) 5.8 k/uL (1.3-7.7); Neutrophils % (A) 69 %; Platelet Count 277 k/uL (150-450); RBC 4.88 m/uL (3.80-5.40); RDW 13.4 % (11.5-15.5); WBC 8.5 k/uL (3.8-10.6)
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
[2017-11-25 17:27] LABS: Creatine Kinase 168 U/L (30-135); D-Dimer 0.55 mg/L FEU (<0.60); Partial Thromboplastin Time 25.6 sec (22.0-30.0); Prothrombin Time 9.9 sec (9.0-12.0)
[2017-11-25 17:28] LABS: Albumin 4.8 g/dL (3.5-5.0); Potassium 4.5 mmol/L (3.5-5.1); Total Bilirubin 0.4 mg/dL (0.2-1.3); Total Protein 7.8 g/dL (6.3-8.2)
[2017-11-25 17:40] LABS: Creatine Kinase MB 2.4 ng/mL (0.0-2.4); Troponin I <0.012 ng/mL (0.000-0.034)
[2017-11-25 18:21] VITALS: RESP 18
[2017-11-25 18:48] VITALS: BP 132/61; PULSE 58; TEMP 97.6
== END 2017-11-25 18:46 | disposition home or self-care (01) ==
LOC: EC 15:23
DX: I48.91 Unspecified atrial fibrillation (principal); R00.1 Bradycardia, unspecified; R55 Syncope and collapse; I10 Essential (primary) hypertension; I25.2 Old myocardial infarction; Z87.891 Personal history of nicotine dependence; Z79.82 Long term (current) use of aspirin; Z79.899 Other long term (current) drug therapy; Z95.5 Presence of coronary angioplasty implant and graft; Z82.49 Family history of ischemic heart disease and other diseases of the circulatory system
CPT/HCPCS: 36415; 71046; 80053; 82550; 82553; 84484; 85025; 85379; 85610; 85730; 99284

== ENCOUNTER 2020-12-16 17:38 | Inpatient (IN) | payer MEDICARE ==
[2020-12-16 18:54] LABS: Basophils # (A) 0.1 k/uL (0-0.2); Basophils % (A) 1 %; Eosinophils # (A) 0.1 k/uL (0-0.7); Eosinophils % (A) 1 %; HCT 40.8 % (34.0-46.0); HGB 13.6 gm/dL (11.4-16.0); Lymphocytes # (A) 2.6 k/uL (1.0-4.8); Lymphocytes % (A) 27 %; MCH 30.4 pg (25.0-35.0); MCHC 33.4 g/dL (31.0-37.0); MCV 91.2 fL (80.0-100.0); Mean Platelet Volume 7.4; Monocytes # (A) 0.5 k/uL (0-1.0); Monocytes % (A) 5 %; Neutrophils # (A) 6.3 k/uL (1.3-7.7); Neutrophils % (A) 65 %; Platelet Count 302 k/uL (150-450); RBC 4.48 m/uL (3.80-5.40); RDW 14.2 % (11.5-15.5); WBC 9.8 k/uL (3.8-10.6)
[2020-12-16 19:02] LABS: Partial Thromboplastin Time 25.4 sec (22.0-30.0); Prothrombin Time 10.4 sec (9.0-12.0)
[2020-12-16 19:21] LABS: Albumin 4.6 g/dL (3.5-5.0); Calcium 9.8 mg/dL (8.4-10.2); Potassium 4.1 mmol/L (3.5-5.1); Total Bilirubin 0.3 mg/dL (0.2-1.3); Total Protein 7.2 g/dL (6.3-8.2)
--- NOTE | 2020-12-16 19:42 | ED ---
Chest Pain HPI - General Chief Complaint: Chest Pain Stated Complaint: chest tightness Time Seen by Provider: 12/16/20 18:23 Source: patient Mode of arrival: ambulatory Limitations: no limitations - History of Present Illness Initial Comments: Is a 70-year-old female with a history of CAD, hypertension, H of fibrillation, hypothyroid who presents for department for an episode of lightheadedness and chest pain. The patient states that she was sitting on the couch when she started to feel lightheaded like she was given pass out. She states that she d idn't little bit diaphoretic at the time. She states that this resolved however shortly afterwards she developed some chest tightness that she states radiated up into her jaw. This persisted and she did end up taking 2 nitroglycerin tablets which then resolved her symptoms. She states that she does not currently have any chest discomfort. She denies any shortness of breath. No nausea, vomiting, or diarrhea. No abdominal pain. She denies any other complaints this time. Patient does have a significant history for CAD with stents placed. She states that she has had a stress test within the last year that was normal. She follows with Dr. Lugo. - Related Data Home Medications Medication Instructions Recorded Confirmed Aspirin 81 mg PO DAILY 12/31/13 12/16/20 Ipratropium/Albuterol Sulfate 1 puff INHALATION RT-QID PRN 03/06/17 12/16/20 [Combivent Respimat Inhaler] Nitroglycerin Sl Tabs [Nitrostat] 0.4 mg SUBLINGUAL Q5M PRN 03/06/17 12/16/20 amLODIPine BESYLATE/BENAZEPRIL 1 cap PO DAILY 03/06/17 12/16/20 [amLODIPine BESYLATE/BENAZEPRIL 10-20 MG] Atorvastatin Calcium [Lipitor] 80 mg PO HS 12/16/20 12/16/20 Levothyroxine Sodium [Synthroid] 150 mcg PO DAILY 12/16/20 12/16/20 Propafenone [Rythmol] 75 mg PO BID 12/16/20 12/16/20 Previous Rx's Medication Instructions Recorded Apixaban [Eliquis] 5 mg PO BID #60 tab 03/07/17 Allergies Allergy/AdvReac Type Severity Reaction Status Date / Time No Known Allergies Allergy Verified 12/16/20 18:46 Review of Systems ROS Statement: Those systems with pertinent positive or pertinent negative responses have been documented in the HPI. ROS Other: All systems not noted in ROS Statement are negative. EKG Findings - EKG Comments: EKG Findings:: EKG showing sinus bradycardia with a rate of 56. No abnormal ST segment changes. T-wave inversions in lead 3 and aVF QTC is 411. Other intervals normal. No ectopy. Past Medical History Past Medical History: Atrial Fibrillation, Hypertension, Myocardial Infarction (NE) Additional Past Medical History / Comment(s): HAD EVENT MONITOR PRIOR TO ADMISSION TO MONITOR FOR AFIB Last Myocardial Infarction Date:: 2004 History of Any Multi-Drug Resistant Organisms: None Reported Past Surgical History: Appendectomy, Cholecystectomy, Heart Catheterization With Stent, Hysterectomy Past Anesthesia/Blood Transfusion Reactions: Postoperative Nausea & Vomiting (PONV) Date of Last Stent Placement:: 2006 Past Psychological History: No Psychological Hx Reported Smoking Status: Never smoker Past Alcohol Use History: Occasional Past Drug Use History: None Reported - Past Family History Mother Family Medical History: Cancer, Deep Vein Thrombosis (DVT) Brother(s) Family Medical History: Cancer Father Family Medical History: Congestive Heart Failure (CHF), Hypertension Sister(s) Family Medical History: Hypertension General Exam - General Exam Comments Initial Comments: Constitutional: Awake alert Appears comfortable Head: Normocephalic atraumatic Eyes: no conjunctival injection No scleral icterus EOMI Neck: No JVD Supple Heart: Regular rate rhythm normal S1-S2 no murmurs Lungs: Clear to auscultation bilaterally No wheezing No rales Abdomen: Soft nondistended nontender Extremities: Non edematous DP pulses intact Radial pulses intact Neuro: A&Ox3 No focal neurologic deficits Psych: Appropriate mood and affect Limitations: no limitations Course Vital Signs 12/16/20 12/16/20 17:56 18:44 Temperature 98.0 F Pulse Rate 57 L 55 L Respiratory 18 16 Rate Blood Pressure 133/75 128/66 O2 Sat by Pulse 98 100 Oximetry Chest Pain MDM - MDM This is a 70-year-old female who presents emergency department for an episode of chest pain. It resolved after taking 2 nitro at home and EKG was unremarkable for any acute ischemic changes. Troponin was negative times one. Chest x-ray was unremarkable. The patient remained a symptom intact throughout her ED stay. However due to the patient's tachypnea cardiac history the patient is to be watched in the hospital overnight for monitoring, repeat troponins, and cardiac evaluation tomorrow. doctor except the patient for admission. Disposition Clinical Impression: Chest pain Disposition: ADMITTED IP TO THIS HOSP Condition: Stable Referrals: Ivania Stephen MD [Primary Care Provider] - 1-2 days
--- NOTE | 2020-12-16 20:13 | XR ---
EXAMINATION TYPE: XR chest 1V portable DATE OF EXAM: 12/16/2020 CLINICAL HISTORY: cp. TECHNIQUE: Portable frontal view of the chest. COMPARISON: 11/25/2017 FINDINGS: The cardiomediastinal silhouette is within normal limits for size. Pulmonary vasculature i s normal. There is no focal air space opacity. No pleural effusion. No pneumothorax seen. No acute d isplaced osseous fracture. IMPRESSION: No acute cardiopulmonary process.
[2020-12-16] MEDS ORDERED: HEPARIN SODIUM 1,000 UN/ML (10ML VL) IV ONE (20:19)
[2020-12-16] MEDS ORDERED: HEPARIN SODIUM 1,000 UN/ML (10ML VL) IV PRN (20:19)
[2020-12-16] MEDS ORDERED: ASPIRIN 81 MG PO STA (20:21)
[2020-12-16] MEDS ORDERED: NITROGLYCERIN SL TABS 0.4 MG TAB SUBLINGUAL PRN (20:23)
[2020-12-16] MEDS ORDERED: HEPARIN SOD,PORK IN 0.45% NACL 25,000 UNIT in 0.45% NACL 1 250ML.BAG IV SCH (20:30)
[2020-12-17 08:09] VITALS: RESP 18; TEMP 98
[2020-12-17] MEDS ORDERED: IPRATROPIUM-ALBUTEROL 3 ML NEB INHALATION PRN (08:46)
[2020-12-17] MEDS ORDERED: ASPIRIN 325 MG TAB PO SCH ×2 (09:00→09:45)
[2020-12-17] MEDS ORDERED: amLODIPine 10 MG TAB PO SCH (09:15)
[2020-12-17] MEDS ORDERED: PROPAFENONE 150 MG TAB PO SCH (09:15)
[2020-12-17] MEDS ORDERED: lisinopriL 20 MG TAB PO SCH (09:15)
[2020-12-17] MEDS ORDERED: APIXABAN 5 MG TAB PO SCH (09:45)
--- NOTE | 2020-12-17 10:20 | CONS ---
CONSULTATION CHIEF COMPLAINT: Chest pain. Conchita is a 70-year-old lady with history of coronary artery disease, status post angioplasty, the first one in 2004 and the second one in 2006, paroxysmal atrial fibrillation, dyslipidemia, hypothyroidism and hypertension who presented to hospital initially with symptoms of dizziness that started yesterday. She felt near-syncopal, and as she was getting ready to come to hospital she had an episode of chest pain as she was getting into the car. She describes it as precordial tightness and pressure without definite radiation to neck, arm or back. Since coming to hospital, her chest pain has resolved, and at the time of my evaluation she is pain-free, hemodynamically stable and in no apparent distress. She has had three sets of cardiac enzymes that are negative. EKG does not reveal ischemic changes. I reviewed her symptomatology, EKG and cardiac enzymes and talked about her treatment options, including cardiac catheterization for definitive diagnosis versus stress testing. Understanding all the issues, she wishes to proceed with a stress test, and if there is ischemia consider cardiac catheterization. I am going to schedule her for a stress echo today. PAST MEDICAL HISTORY: Her past medical history is significant for hypertension, hypothyroidism, paroxysmal atrial fibrillation and coronary artery disease, status post multivessel angioplasty. ALLERGIES: NO KNOWN DRUG ALLERGIES. MEDICATIONS: Medications at home include Lotrel 10/20, Rythmol 75 b.i.d., Synthroid 150 daily, Lipitor 80 daily, aspirin 81, Eliquis 5 b.i.d. and Combivent inhaler. FAMILY HISTORY: Negative for premature coronary artery disease. SOCIAL HISTORY: Negative for current smoking, EtOH abuse or drug abuse. REVIEW OF SYSTEMS: HEENT is unremarkable. CARDIAC: As described above. RESPIRATORY: Negative. GI: Negative. GENITOURINARY: Negative. ALLERGY/IMMUNOLOGY: Negative. SKIN: Negative. MUSCULOSKELETAL: Negative. HEMATOLOGICAL: Negative. DERMATOLOGY: Negative. CONSTITUTIONAL: Negative. ONCOLOGICAL: Negative. WIRELESS SALES MANAGER: Negative. Rest of the system review is not relevant. PHYSICAL EXAMINATION: Comfortable at rest. Afebrile. Heart rate is 60 beats per minute, blood pressure 107/65, respiratory rate 18, oxygen saturation is 96%. There is no jugular venous distention. Carotid upstroke is normal. There is no bruit. Chest exam reveals good air entry bilaterally. Heart exam reveals first and second heart sounds. No gallop. No murmur. No rub. Abdomen is soft, nontender. Examination of extremities did not reveal any edema. Peripheral pulses are felt. WIRELESS SALES MANAGER exam did not reveal focal neurological deficits. LABS: Labs show that the hemoglobin is 13.6, platelet count is 302, potassium is 4.1. Creatinine is 0.93. Troponins are negative. BNP is normal. ASSESSMENT: 1. Precordial chest pain. 2. Paroxysmal atrial fibrillation. 3. Known coronary artery disease, status post multivessel angioplasty. 4. Hypertension. PLAN: I am going to schedule her for a stress echo this morning and decide on further course of action based on the stress test findings. MMODL / IJN: [id number] /
[2020-12-17 14:31] VITALS: BP 124/55; PULSE 64
--- NOTE | 2020-12-17 17:23 | P.HPIM ---
History of Present Illness H&P Date: 12/17/20 Chief Complaint: chest pain HISTORY OF PRESENT ILLNESS: this is a 70-year-old female with a previous medical history significant for hypertension and hypertensive cardiovascular disease, hyperlipidemia, coronary artery disease status post PCI in 2004 and 2006, his tory of paroxysmal atrial fibrillation,hypothyroidism, COPD, patient presented to the emergency department at [facility] yesterday with increased left-sided chest pain pressure radiating to the throat area associated with increased shortness breath, patient stated that she was feeling dizzy lightheaded and almost passed out after that developed to have the chest pain on her way to go to the urgent care so she ended up coming to the ER for evaluation, twelve-lead EKG showed normal sinus rhythm with anteroseptal Q waves, with no acute ST-T wave changes, initial troponin was negative, she was started on heparin drip, aspirin, and she was admitted to the hospital for evaluation by cardiology. Patient stated that she did have a stress test about a year ago that was negative for stress-induced ischemia. REVIEW OF SYSTEMS: Constitutional: No documented fever, no chills, no night sweats. No weight change. No weakness, fatigue or lethargy. No daytime sleepiness. HEENT: No headache. No blurred vision or double vision, no loss of vision. No loss of Hearing, no ringing in the ears, no dizziness. No nasal drainage or congestion. No epistaxis. No sore throat. Lungs:positive for shortness of breath, no cough, no sputum production. No wheezing. Reports dyspnea with activity. Cardiovascular:positive for chest pain, no lower extremity edema. No palpitations. No paroxysmal nocturnal dyspnea. No orthopnea. No lightheadedness or dizziness. No syncopal episodes. Abdominal: Reports no abdominal pain. No nausea, vomiting. No diarrhea. No constipation. No bloody or tarry stools reports loss of appetite. Genitourinary: No dysuria, increased frequency, urgency. No urinary retention. Musculoskeletal: No myalgias. No muscle weakness, no gait dysfunction, no frequent falls. No back pain. No neck pain. Integumentary: No wounds, no lesions. No rash or pruritus. No unusual bruising. No change in hair or nails. Neurologic: No aphasia. No facial droop. No change in mentation. No head injury. No headache. No paralysis. No paresthesia. Psychiatric: No depression. No anxiety. No mood swings. Endocrine: No abnormal blood sugars. No weight change. PAST MEDICAL HISTORY: CAD post-PCI in 2004 and 2006 Hypertension and hypertensive cardiovascular disease. Hyperlipidemia Hypothyroidism COPD. Paroxysmal atrial fibrillation. PAST SURGICAL HISTORY: cholecystectomy. Partial hysterectomy. Left heart catheterization with stents in 2004 and 2006 SOCIAL HISTORY: patient used to smoke about pack every day she smoked for many years and quit many years ago more than 15 years ago, she denies any drug use or abuse, she drinks alcohol occasionally she lives with her . FAMILY HISTORY: father at age 78 from heart failure, mother at age of 87 from lung cancer, patient has one brother with CVA and esophageal cancer patient has 2 sister both have rheumatoid arthritis and hypertension patient has one son with hyperlipidemia and one daughter who is bipolar disorder. PHYSICAL EXAMINATION: General: 70-year-old female laying down in bed in no apparent distress HEENT: Head is atraumatic, normocephalic, pupils were equal round reactive to light and recommendation, extraocular muscle movement were intact, sclera nonicteric, conjunctivae were pale, mucous membranes of the mouth are somewhat dry. Neck: Supple, no JVP, normal carotid upstroke bilaterally, no lymphadenopathy. Chest: Decreased breath sounds at the bases, few rhonchi, no expiratory wheezes, no chest wall tenderness, no intercostal retractions. Heart: First heart sound is normal, second heart sounds normal there is no gallop or murmur or heaves. Abdomen: Soft, nontender, nondistended, positive bowel sounds. Extremities: There is no edema no calf tenderness DP +2 bilaterally. Neurologic examination: Patient is awake alert and oriented X 3, cranial nerves II-12 appear grossly intact, muscle power were 5 out of 5 in upper extremities and 5 out of 5 in bilateral lower extremities, deep tendon reflexes normal bilaterally. ASSESSMENT AND PLAN: 1. chest pain ruled out for acute coronary syndrome. Discontinue heparin drip, continue patient on aspirin 325 milligram orally once every day, continue atorvastatin 80 mg orally once every day, cariology consultation for stress test versus left heart catheterization. 2. History of CAD post-PCI in 2004 and 2006. Continue aspirin 81 mg once every day, Lipitor 80 mg orally once every day. 3. Hypertension and hypertensive cardio vascular disease. Continue patient on Lotrel 10/20 mg orally once every day, monitor the patient blood pressure very closely. 4. Hyperlipidemia. Continue patient on atorvastatin 80 mg orally once every day. Keep LDL cholesterol 55-70. 5. Paroxysmal atrial fibrillation currently in sinus rhythm. Continue propafenone 150 mg half a tablet orally twice every day along with Eliquis 5 mg orally twice every day. 6. hypothyroidism. Continue Synthroid 150 MCG orally once every day. 7. COPD. Continue patient on Spiriva Respimat one puff inhalation every 6 hours as needed. 8. Admit to inpatient. Estimated length of stay 2 midnights. 9. Full code. Past Medical History Past Medical History: Atrial Fibrillation, Hypertension, Myocardial Infarction (CT) Additional Past Medical History / Comment(s): HAD EVENT MONITOR PRIOR TO ADMISSION TO MONITOR FOR AFIB Last Myocardial Infarction Date:: 2004 History of Any Multi-Drug Resistant Organisms: None Reported Past Surgical History: Appendectomy, Cholecystectomy, Heart Catheterization With Stent, Hysterectomy Past Anesthesia/Blood Transfusion Reactions: Postoperative Nausea & Vomiting (PONV) Date of Last Stent Placement:: 2006 Past Psychological History: No Psychological Hx Reported Smoking Status: Never smoker Past Alcohol Use History: Occasional Past Drug Use History: None Reported - Past Family History Mother Family Medical History: Cancer, Deep Vein Thrombosis (DVT) Brother(s) Family Medical History: Cancer Father Family Medical History: Congestive Heart Failure (CHF), Hypertension Sister(s) Family Medical History: Hypertension Medications and Allergies Home Medications Medication Instructions Recorded Confirmed Type Aspirin 81 mg PO DAILY 12/31/13 12/16/20 History Ipratropium/Albuterol Sulfate 1 puff INHALATION RT-QID PRN 03/06/17 12/16/20 History [Combivent Respimat Inhaler] Nitroglycerin Sl Tabs [Nitrostat] 0.4 mg SUBLINGUAL Q5M PRN 03/06/17 12/16/20 History amLODIPine BESYLATE/BENAZEPRIL 1 cap PO DAILY 03/06/17 12/16/20 History [amLODIPine BESYLATE/BENAZEPRIL 10-20 MG] Apixaban [Eliquis] 5 mg PO BID #60 tab 03/07/17 12/16/20 Rx Atorvastatin Calcium [Lipitor] 80 mg PO HS 12/16/20 12/16/20 History Levothyroxine Sodium [Synthroid] 150 mcg PO DAILY 12/16/20 12/16/20 History Propafenone [Rythmol] 75 mg PO BID 12/16/20 12/16/20 History Allergies Allergy/AdvReac Type Severity Reaction Status Date / Time No Known Allergies Allergy Verified 12/16/20 18:46 Physical Exam Vitals: Vital Signs Temp Pulse Pulse Resp BP Pulse Ox 12/17/20 06:00 50 L 20 101/42 96 12/17/20 04:00 49 L 20 109/42 98 12/17/20 03:00 51 L 12/17/20 00:00 49 L 18 115/60 97 12/16/20 22:39 52 L 18 12/16/20 21:00 53 L 18 141/70 97 12/16/20 18:44 55 L 16 128/66 100 12/16/20 17:56 98.0 F 57 L 18 133/75 98 Intake and Output 12/16/20 12/17/20 12/17/20 22:59 06:59 14:59 Other: Voiding Method Toilet Weight 69.853 kg Results CBC & Chem 7: 12/16/20 18:45 12/16/20 18:45 Labs: Abnormal Lab Results - Last 24 Hours (Table) 12/16/20 12/17/20 Range/Units 18:45 03:44 APTT 54.2 H (22.0-30.0) sec Carbon Dioxide 21 L (22-30) mmol/L BUN 25 H (7-17) mg/dL Glucose 104 H (74-99) mg/dL
--- NOTE | 2020-12-17 17:26 | P.DS ---
Providers Date of admission: 12/16/20 20:24 Expected date of discharge: 12/17/20 Attending physician: Ivania Stephen Consults: 12/16/20 20:23 Consult Physician Urgent Consulting Provider: Km Lugo Consult Reason/Comments: chest pain Do you want consulting provider notified?: Yes, Notify in am Primary care physician: Ivania Stephen Hospital Course: HISTORY OF PRESENT ILLNESS: this is a 70-year-old female with a previous medical history significant for hypertension and hypertensive cardiovascular disease, hyperlipidemia, coronary artery disease status post PCI in 2004 and 2006, history of paroxysmal atrial fibrillation,hypothyroidism, COPD, patient presented to the emergency department at [facility] yesterday with increased left-sided chest pain pressure radiating to the throat area associated with increased shortness breath, patient stated that she was feeling dizzy lightheaded and almost passed out after that developed to have the chest pain on her way to go to the urgent care so she ended up coming to the ER for evaluation, twelve-lead EKG showed normal sinus rhythm with anteroseptal Q waves, with no acute ST-T wave changes, initial troponin was negative, she was started on heparin drip, aspirin, and she was admitted to the hospital for evaluation by cardiology. Patient stated that she did have a stress test about a year ago that was negative for stress-induced ischemia. 12/17: patient underwent stress echocardiogram that was negative for stress- induced ischemia and the patient wanted to be discharged home at this point in time, she will be discharged and follow-up with her supplies packer as an outpatient one week, she is also to follow-up with me as an outpatient 1 week. Discharge diagnoses: 1. Chest pain with negative stress test per stress echo 2. History of CAD post-PCI 2004 and 2006 3. Hypertension and hypertensive cardiovascular disease. 4. . Hyperlipidemia. 5. Hypothyroidism. 6. Paroxysmal atrial fibrillation. 7. COPD 3 Patient Condition at Discharge: Stable Plan - Discharge Summary New Discharge Prescriptions: Continue Nitroglycerin Sl Tabs [Nitrostat] 0.4 mg SUBLINGUAL Q5M PRN PRN Reason: Chest Pain amLODIPine BESYLATE/BENAZEPRIL [amLODIPine BESYLATE/BENAZEPRIL 10-20 MG] 1 cap PO DAILY Apixaban [Eliquis] 5 mg PO BID #60 tab Propafenone [Rythmol] 75 mg PO BID Atorvastatin Calcium [Lipitor] 80 mg PO HS No Action Aspirin 81 mg PO DAILY Ipratropium/Albuterol Sulfate [Combivent Respimat Inhaler] 1 puff INHALATION RT-QID PRN PRN Reason: Shortness Of Breath Levothyroxine Sodium [Synthroid] 150 mcg PO DAILY Discharge Medication List Aspirin 81 mg PO DAILY 12/31/13 [History] Ipratropium/Albuterol Sulfate [Combivent Respimat Inhaler] 1 puff INHALATION RT- QID PRN 03/06/17 [History] Nitroglycerin Sl Tabs [Nitrostat] 0.4 mg SUBLINGUAL Q5M PRN 03/06/17 [History] amLODIPine BESYLATE/BENAZEPRIL [amLODIPine BESYLATE/BENAZEPRIL 10-20 MG] 1 cap PO DAILY 03/06/17 [History] Apixaban [Eliquis] 5 mg PO BID #60 tab 03/07/17 [Rx] Atorvastatin Calcium [Lipitor] 80 mg PO HS 12/16/20 [History] Levothyroxine Sodium [Synthroid] 150 mcg PO DAILY 12/16/20 [History] Propafenone [Rythmol] 75 mg PO BID 12/16/20 [History] Follow up Appointment(s)/Referral(s): Ivania Stephen MD [Primary Care Provider] - 1-2 days (Please call office to make an appointment) Km Lugo MD [STAFF PHYSICIAN] - 2 Weeks (Please call office to make appointment) Patient Instructions/Handouts: Angina (DC)
[2020-12-17 20:27] LABS: Chol/HDL Ratio 2.82; LDL Cholesterol,Calculated 72.6 mg/dL (0.0-131.0); VLDL Calculation 20.4 mg/dL (5.00-40.00)
[2020-12-17] MEDS ORDERED: ATORVASTATIN 80 MG TAB PO SCH (21:00)
[2020-12-18] MEDS ORDERED: LEVOTHYROXINE 75 MCG TAB PO SCH (06:30)
--- NOTE | 2020-12-18 12:02 | ECHOS ---
STRESS ECHOCARDIOGRAM INDICATIONS: Chest pain BASELINE HEART RATE: 51 BASELINE BLOOD PRESSURE: 123/52 MAXIMUM HEART RATE: 146 MAXIMUM BLOOD PRESSURE: 232/69 85% MPHR: 128 100% MPHR: 151 METS: 12.3 MAXIMUM STAGE REACHED: 4 TOTAL EXERCISE TIME: 12:09 CLINICAL INFORMATION: Baseline EKG revealed normal sinus rhythm with poor progression of R-waves over precordial leads. Patient walked on a standard Keith protocol for 12 minutes and achieved a maximal heart rate of 146 beats per minute. She developed fatigue and shortness of breath but did not have any angina. Resting heart rate was 51 beats per minute. Resting blood pressure was 123/52. Peak blood pressure was 230/69. The patient had a hypertensive response to exercise. No ST-segment changes to indicate ischemia and no significant arrhythmia. Rare PVCs were noted. By EKG criteria, this is a negative stress test with excellent exercise capacity. Baseline echo images revealed normal wall motion and wall thickening of all segments. At peak exercise there was good augmentation of left ventricular wall motion and wall thickening of all segments, suggesting that there is no evidence of stress-induced ischemia on this study. FINAL IMPRESSION: 1. Excellent exercise capacity with a negative stress test by EKG criteria with mild resting EKG changes. 2. Normal stress echocardiogram with excellent exercise capacity. MMODL / IJN: [id number] /
== END 2020-12-17 18:07 | disposition home or self-care (01) ==
LOC: EC 17:38 → 6NMEDSUR 20:24 → 3SCARD 12-17 07:58
PROVIDERS: ADMIT Internal Medicine; ATTEND Internal Medicine
CPT/HCPCS: 93351; 99285; 96366 ×3; 96376; 96365; 36415; 93005 ×2; 83880; 80061; 80053; 84484 ×2; 85025; 85610; 85730 ×2; 71045; G0378 ×3; J1644 ×2

== ENCOUNTER → 2021-03-17 | Outpatient (CLI) | payer MEDICARE ==
--- NOTE | 2021-03-17 14:00 | BD ---
EXAMINATION TYPE: Axial Bone Density DATE OF EXAM: 03/17/2021 COMPARISON: NONE CLINICAL HISTORY: 70 YR OLD FEMALE....ICD-10 CODE: R93.7 ABNORMAL BD SCREENING Height: 66.4 Weight: 152 FRAX RISK QUESTIONS: NOTHING TO NOTE HERE RISK FACTORS HISTORY OF: Postmenopausal woman: YES, AT ABOUT 53 YRS OLD Hyperparathyroidism: NO Adrenal Insufficiency: NO MEDICATIONS: Prednisone or other steroids: YES, FOR ASTHMA FOR MANY YRS Thyroid Medications: YES, FOR ABOUT 35-40 YRS , SYNTHROID Additional Medications: BP MEDS, STATIN FOR CHOLESTEROL, MULTIVITAMIN Additional History: HYPERTENSION, CHOLESTEROL, THYROID, SEASONAL ASTHMA, ARTHRITIS EXAM MEASUREMENTS: Bone mineral densitometry was performed using the 3Leaf System. Bone mineral density as measured about the Lumbar spine is: ----- L1-L4(G/cm2): 1.103 T Score Values are as follows: ----- L1: -0.9 ----- L2: -2.0 ----- L3: -0.6 ----- L4: 0.4 ----- L1-L4: -0.6 Bone mineral density FIRST DEXA STUDY AT [facility] Bone mineral density about the R hip (g/cm2): 0.967 Bone mineral density about the L hip (g/cm2): 0.998 T Score values are as follows: -----R Neck: -0.5 -----L Neck: -0.7 -----R Total: -0.3 -----L Total: -0.1 Bone mineral density FIRST DEXA STUDY AT [facility] FRAX%S: THERE IS A 12.6% CHANCE FOR A MAJOR OSTEOPOROTIC FX AND A 1.1% FOR HIP......PROBABILITY F OR FX IN 10 YRS TIME IMPRESSION: Normal (Values between +1 and -1 indicate normal bone mass). Consider repeating this study in 5 year s or sooner if there is some new clinical indication. NOTE: T-SCORE=SD OF THE YOUNG ADULT MEAN.
--- NOTE | 2021-03-22 10:59 | MM ---
Reason for exam: screening (asymptomatic). Last mammogram was performed 2 years and 9 months ago. History: Patient is postmenopausal. Physical Findings: A clinical breast exam by your physician is recommended on an annual basis and results should be correlated with mammographic findings. MG 3D Screening Mammo W/Cad Bilateral CC and MLO view(s) were taken. Prior study comparison: June 22, 2018, mammogram, performed at [facility]. June 07, 2017, mammogram, performed at [facility]. The breast tissue is heterogeneously dense. This may lower the sensitivity of mammography. No significant changes when compared with prior studies. ASSESSMENT: Negative, BI-RAD 1 RECOMMENDATION: Routine screening mammogram of both breasts in 1 year.
== END | disposition home or self-care (01) ==
LOC: RADMAMWWP 07:55
PROVIDERS: ATTEND Internal Medicine
DX: Z12.31 Encounter for screening mammogram for malignant neoplasm of breast (principal); M85.88 Other specified disorders of bone density and structure, other site; Z78.0 Asymptomatic menopausal state
CPT/HCPCS: 77063; 77067; 77080

== ENCOUNTER 2021-12-01 08:04 | Day surgery (SDC) | payer MEDICARE ==
[2021-11-29 11:03] VITALS: BMI 23.6
[~2021-12-01 08:04] MED LIST: LACTATED RINGERS 1,000 ML IV SCH
[2021-12-01 08:36] VITALS: RESP 16; TEMP 96.9
[2021-12-01] MEDS ORDERED: LIDOCAINE 1% (10MG/ML) FOR IV START INTRADERMA ONE (08:47)
[2021-12-01] MEDS ORDERED: PROPOFOL 10 MG/ML 20 ML VIAL IV ONE (08:55)
--- NOTE | 2021-12-01 09:20 | P.PCN ---
Date of Procedure: 12/01/21 Procedure(s) Performed: BRIEF HISTORY: Patient is a 71-year-old pleasant white female scheduled for an elective colonoscopy as a part of evaluation of prior history of colon polyps. PROCEDURE PERFORMED: Colonoscopy with snare polypectomy. PREOPERATIVE DIAGNOSIS: History of colon polyps. IV sedation per Anesthesia. PROCEDURE: After informed consent was obtained, the patient, was brought into the endoscopy unit. IV sedation was administered by Anesthesia under continuous monitoring. Digital rectal examination was normal. Initially the Olympus CF-160 flexible video colonoscope was then inserted in the rectum, gradually advanced into the cecum without any difficulty. Careful examination was performed as the scope was gradually being withdrawn. Ileocecal valve and the appendiceal orifice were visualized and appeared normal. Prep was excellent. Mucosa of the cecum 7 mm sessile polyp removed by snare polypectomy. In the transverse colon there was a 5 mm polyp removed by snare polypectomy. Rest of the, ascending colon, transverse colon, descending colon, sigmoid colon, and rectum appeared normal. Scattered sigmoid diverticulosis seen. Retroflexion was performed in the rectum and no lesions were seen. The patient tolerated the procedure well. IMPRESSION: 7 mm cecal polyps is post polypectomy 5 mm transverse colon polyp status post polypectomy Scattered sigmoid diverticula RECOMMENDATIONS: Findings of this examination were discussed with the patient as well as her family. She was advised to follow with the biopsy results. If the biopsy result adenoma she can have a repeat colonoscopy in 5 years..
[2021-12-01 10:08] VITALS: BP 110/64; PULSE 51
== END 2021-12-01 11:37 | disposition home or self-care (01) ==
LOC: ORWHC2ENDO 08:04
PROVIDERS: ATTEND Internal Medicine Gastroenterology
DX: Z12.11 Encounter for screening for malignant neoplasm of colon (principal); D12.0 Benign neoplasm of cecum; D12.3 Benign neoplasm of transverse colon; K57.30 Diverticulosis of large intestine without perforation or abscess without bleeding; Z86.010 Personal history of colon polyps; I48.91 Unspecified atrial fibrillation; K21.9 Gastro-esophageal reflux disease without esophagitis; I25.2 Old myocardial infarction; J45.909 Unspecified asthma, uncomplicated; Z87.891 Personal history of nicotine dependence; M19.90 Unspecified osteoarthritis, unspecified site; Z79.890 Hormone replacement therapy; Z79.01 Long term (current) use of anticoagulants; Z79.82 Long term (current) use of aspirin; Z79.899 Other long term (current) drug therapy
CPT/HCPCS: 88305; 45385; J2704

== ENCOUNTER → 2022-07-12 | Outpatient (CLI) | payer MEDICARE ==
--- NOTE | 2022-07-13 09:24 | MM ---
Reason for Exam: Screening (asymptomatic). Last mammogram was performed 1 year(s) and 4 month(s) ago. Patient History: Menarche at age 15. First Full-Term at age 18. Left ovary removed at age 36. Hysterectomy at age 36. Postmenopausal. Risk Values: Gabriela 5 year model risk: 1.1%. NCI Lifetime model risk: 3.3%. Prior Study Comparison: 06/07/2017 Screening Mammogram, [facility]. 06/22/2018 Screening Mammogram, [facility]. 03/17/2021 Bilateral Screening Mammogram, [facility]. Tissue Density: The breast tissue is heterogeneously dense. This may lower the sensitivity of mammography. Findings: Analyzed By CAD. There are a few scattered tiny benign-appearing round calcifications bilaterally redemonstrated. There is no suspicious new group of microcalcifications or new suspicious mass in either breast. Overall Assessment: Benign, BI-RAD 2 Management: Screening Mammogram of both breasts in 1 year. A clinical breast exam by your physician is recommended on an annual basis and results should be correlated with mammographic findings. Electronically signed and approved by: Fabien Barros M.D.
== END | disposition home or self-care (01) ==
LOC: RADMAMWWP 14:13
PROVIDERS: ATTEND Internal Medicine
DX: Z12.31 Encounter for screening mammogram for malignant neoplasm of breast (principal); Z78.0 Asymptomatic menopausal state
CPT/HCPCS: 77063; 77067

== ENCOUNTER 2023-02-09 20:18 | Emergency (ER) | payer MEDICARE ==
--- NOTE | 2023-02-09 20:26 | ED ---
Abdominal Pain HPI - General Source: patient, RN notes reviewed Mode of arrival: ambulatory Limitations: no limitations - History of Present Illness MD Complaint: abdominal pain, flank pain <Anupama Edwards - Last Filed: 02/09/23 20:23> <Geena Healy - Last Filed: 02/11/23 03:43> - General Chief Complaint: Abdominal Pain Stated Complaint: UTI/Poss Kidney Infection Time Seen by Provider: 02/09/23 20:23 - History of Present Illness Initial Comments: This is a 72 year old female who presents to the emergency department for back pain and abdominal pain. She is currently being treated for a UTI with the antibiotic Cefuroxime, which she started 2 days ago. Her urinary symptoms have improved, however she is now developing pain in the abdomen and back and is worried about the infection progressing. She is unable to localize the pain to any specific side. (Anupama Edwards) - Related Data Home Medications Medication Instructions Recorded Confirmed Aspirin 81 mg PO DAILY 12/31/13 11/29/21 Ipratropium/Albuterol Sulfate 1 puff INHALATION RT-QID PRN 03/06/17 11/29/21 [Combivent Respimat Inhaler] Nitroglycerin Sl Tabs [Nitrostat] 0.4 mg SUBLINGUAL Q5M PRN 03/06/17 11/29/21 amLODIPine BESYLATE/BENAZEPRIL 1 cap PO DAILY 03/06/17 11/29/21 [amLODIPine BESYLATE/BENAZEPRIL 10-20 MG] Atorvastatin Calcium [Lipitor] 80 mg PO HS 12/16/20 11/29/21 Levothyroxine Sodium [Synthroid] 150 mcg PO DAILY 12/16/20 11/29/21 Propafenone [Rythmol] 75 mg PO BID 12/16/20 11/29/21 Biotin [Biotin Disolve] 5,000 mcg PO DAILY 11/29/21 11/29/21 Calcium Carbonate [Calcium] 1,200 mg PO DAILY 11/29/21 11/29/21 Cyanocobalamin (Vitamin B-12) 1,000 mcg PO DAILY 11/29/21 11/29/21 [Vitamin B-12] Melatonin [Melatonin ER] 10 mg PO HS PRN 11/29/21 11/29/21 Multivit-Min/FA/Lycopen/Lutein 1 each PO DAILY 11/29/21 11/29/21 [Centrum Silver Tablet] Ubidecarenone [Co Q-10] 400 mg PO DAILY 11/29/21 11/29/21 Previous Rx's Medication Instructions Recorded Apixaban [Eliquis] 5 mg PO BID #60 tab 03/07/17 Ketorolac [Toradol] 10 mg PO Q8HR #15 tab 02/10/23 Ondansetron Odt [Zofran Odt] 4 mg PO Q8HR PRN #20 tab 02/10/23 Tamsulosin [Flomax] 0.4 mg PO DAILY #7 cap 02/10/23 HYDROcodone/APAP 10-325MG [Daykin 1 tab PO Q4HR PRN 3 Days #18 tab 02/11/23 10-325] Allergies Allergy/AdvReac Type Severity Reaction Status Date / Time No Known Allergies Allergy Verified 02/09/23 20:26 Review of Systems ROS Other: All systems not noted in ROS Statement are negative. <Anupama Edwards - Last Filed: 02/09/23 20:23> ROS Other: All systems not noted in ROS Statement are negative. <Geena Healy - Last Filed: 02/11/23 03:43> ROS Statement: Those systems with pertinent positive or pertinent negative responses have been documented in the HPI. Past Medical History Past Medical History: Atrial Fibrillation, Hypertension, Myocardial Infarction (MO) Additional Past Medical History / Comment(s): HAD EVENT MONITOR PRIOR TO ADMISSION TO MONITOR FOR AFIB Last Myocardial Infarction Date:: 2004 History of Any Multi-Drug Resistant Organisms: None Reported Past Surgical History: Appendectomy, Cholecystectomy, Heart Catheterization With Stent, Hysterectomy Additional Past Surgical History / Comment(s): cataracts Past Anesthesia/Blood Transfusion Reactions: Postoperative Nausea & Vomiting (PONV) Date of Last Stent Placement:: 2006 Past Alcohol Use History: Occasional - Past Family History Mother Family Medical History: Cancer, Deep Vein Thrombosis (DVT) Brother(s) Family Medical History: Cancer Father Family Medical History: Congestive Heart Failure (CHF), Hypertension Sister(s) Family Medical History: Hypertension <Anupama Edwards - Last Filed: 02/09/23 20:23> General Exam <Anupama Edwards - Last Filed: 02/09/23 20:23> - General Exam Comments Initial Comments: Visual Physical Exam Vital signs reviewed General: Well-appearing, nontoxic, no acute distress. Head: Normocephalic, atraumatic Eyes: PERRLA, EOMI ENT: Airway patent Chest: Nonlabored breathing Skin: No visual rash, normal skin tone Neuro: Alert and oriented 3 Musculoskeletal: No gross abnormalities I performed the QuickNote portion of this chart. Signed Anupama Edwards PA-C. (Anupama Edwards) Course Vital Signs 02/09/23 02/10/23 02/10/23: 00:26 03:50 Temperature 98.5 F Pulse Rate 91 62 83 Respiratory 16 16 16 Rate Blood Pressure 160/73 151/70 137/66 O2 Sat by Pulse 96 97 95 Oximetry 02/10/23 02/10/23 09:40 10:31 Temperature 98.0 F 97.9 F Pulse Rate 57 L 60 Respiratory 18 16 Rate Blood Pressure 128/68 100/51 O2 Sat by Pulse 96 97 Oximetry Medical Decision Making - Lab Data Result diagrams: 02/09/23 21:30 02/09/23 21:30 <Geena Healy - Last Filed: 02/11/23 03:43> - Medical Decision Making Was pt. sent in by a medical professional or institution (QUIANA Thompson, PHP PROGRAMMER, urgent care, hospital, or long term...) When possible be specific @ -[No] Did you speak to anyone other than the patient for history (EMS, parent, family, police, friend...)? What history was obtained from this source @ -[No] Did you review nursing and triage notes (agree or disagree)? Why? @ -[I reviewed and agree with nursing and triage notes] Were old charts reviewed (outside hosp., previous admission, EMS record, old EKG, old radiological studies, urgent care reports/EKG's, long term records)? Report findings @ -[No old charts were reviewed] Differential Diagnosis (chest pain, altered mental status, abdominal pain women, abdominal pain men, vaginal bleeding, weakness, fever, dyspnea, syncope, headache, dizziness, GI bleed, back pain, seizure, CVA, palpatations, mental health, musculoskeletal)? @ -[not applicable] EKG interpreted by me (3pts min.). @ -Yes and demonstrates sinus rhythm with a rate of 74. TN interval 224. QRS 96. QTC of 425. No acute ST segment elevations or depressions X-rays interpreted by me (1pt min.). @ -[None done] CT interpreted by me (1pt min.). @ -[None done] U/S interpreted by me (1pt. min.). @ -[None done] What testing was considered but not performed or refused? (CT, X-rays, U/S, labs)? Why? @ -[None] What meds were considered but not given or refused? Why? @ -[None] Did you discuss the management of the patient with other professionals (professionals i.e. , PA, PHP PROGRAMMER, lab, RT, psych nurse, social media assistant, vertical punch operator, teacher, adult parole officer, welfare case worker)? Give summary @ -[No] Was smoking cessation discussed for >3mins.? @ -[No] Was critical care preformed (if so, how long)? @ -[No] Were there social determinants of health that impacted care today? How? (Homelessness, low income, unemployed, alcoholism, drug addiction, transportation, low edu. Level, literacy, decrease access to med. care, usp, rehab)? @ -[No] Was there de-escalation of care discussed even if they declined (Discuss DNR or withdrawal of care, Hospice)? DNR status @ -[No] What co-morbidities impacted this encounter? (DM, HTN, Smoking, COPD, CAD, Cancer, CVA, ARF, Chemo, Hep., AIDS, mental health diagnosis, sleep apnea, morbid obesity)? @ -[None] Was patient admitted / discharged? Hospital course, mention meds given and rout e, prescriptions, significant lab abnormalities, going to OR and other pertinent info. @ -[hospital course] Undiagnosed new problem with uncertain prognosis? @ -[No] Drug Therapy requiring intensive monitoring for toxicity (Heparin, Nitro, Insulin, Cardizem)? @ -[No] Were any procedures done? @ -[No] Diagnosis/symptom? @ -[default] Acute, or Chronic, or Acute on Chronic? @ -[default] Uncomplicated (without systemic symptoms) or Complicated (systemic symptoms)? @ -[default] Side effects of treatment? @ -[No] Exacerbation, Progression, or Severe Exacerbation? @ -[No] Poses a threat to life or bodily function? How? (Chest pain, USA, MO, pneumonia, PE, COPD, DKA, ARF, appy, cholecystitis, CVA, Diverticulitis, Homicidal, Suicidal, threat to staff... and all critical care pts) @ -[No] (MonetGeena Saman) - Lab Data Lab Results 02/09/23 02/09/23 02/09/23 Range/Units 21:30 21:30 21:30 WBC 10.8 H (3.8-10.6) k/uL RBC 4.54 (3.80-5.40) m/uL Hgb 13.7 (11.4-16.0) gm/dL Hct 40.5 (34.0-46.0) % MCV 89.1 (80.0-100.0) fL MCH 30.2 (25.0-35.0) pg MCHC 33.9 (31.0-37.0) g/dL RDW 13.2 (11.5-15.5) % Plt Count 321 (150-450) k/uL MPV 7.7 Neutrophils % 73 % Lymphocytes % 19 % Monocytes % 6 % Eosinophils % 1 % Basophils % 0 % Neutrophils # 7.8 H (1.3-7.7) k/uL Lymphocytes # 2.0 (1.0-4.8) k/uL Monocytes # 0.6 (0-1.0) k/uL Eosinophils # 0.1 (0-0.7) k/uL Basophils # 0.0 (0-0.2) k/uL Sodium 139 (137-145) mmol/L Potassium 4.2 (3.5-5.1) mmol/L Chloride 104 (98-107) mmol/L Carbon Dioxide 23 (22-30) mmol/L Anion Gap 12 mmol/L BUN 28 H (7-17) mg/dL Creatinine 1.26 H (0.52-1.04) mg/dL Est GFR (CKD-EPI)AfAm 50 (>60 ml/min/1.73 sqM) Est GFR (CKD-EPI)NonAf 43 (>60 ml/min/1.73 sqM) Glucose 107 H (74-99) mg/dL Plasma Lactic Acid Jacinto 0.7 (0.7-2.0) mmol/L Calcium 9.8 (8.4-10.2) mg/dL Total Bilirubin 0.3 (0.2-1.3) mg/dL AST 31 (14-36) U/L ALT 30 (4-34) U/L Alkaline Phosphatase 77 (38-126) U/L Total Protein 7.7 (6.3-8.2) g/dL Albumin 4.4 (3.5-5.0) g/dL Urine Color Urine Appearance (Clear) Urine pH (5.0-8.0) Ur Specific [place] (1.001-1.035) Urine Protein (Negative) Urine Glucose (UA) (Negative) Urine Ketones (Negative) Urine Blood (Negative) Urine Nitrite (Negative) Urine Bilirubin (Negative) Urine Urobilinogen (<2.0) mg/dL Ur Leukocyte Esterase (Negative) Urine RBC (0-5) /hpf Urine WBC (0-5) /hpf Urine Bacteria (None) /hpf Hyaline Casts (0-2) /lpf Urine Mucus (None) /hpf 02/10/23 Range/Units 01:00 WBC (3.8-10.6) k/uL RBC (3.80-5.40) m/uL Hgb (11.4-16.0) gm/dL Hct (34.0-46.0) % MCV (80.0-100.0) fL MCH (25.0-35.0) pg MCHC (31.0-37.0) g/dL RDW (11.5-15.5) % Plt Count (150-450) k/uL MPV Neutrophils % % Lymphocytes % % Monocytes % % Eosinophils % % Basophils % % Neutrophils # (1.3-7.7) k/uL Lymphocytes # (1.0-4.8) k/uL Monocytes # (0-1.0) k/uL Eosinophils # (0-0.7) k/uL Basophils # (0-0.2) k/uL Sodium (137-145) mmol/L Potassium (3.5-5.1) mmol/L Chloride (98-107) mmol/L Carbon Dioxide (22-30) mmol/L Anion Gap mmol/L BUN (7-17) mg/dL Creatinine (0.52-1.04) mg/dL Est GFR (CKD-EPI)AfAm (>60 ml/min/1.73 sqM) Est GFR (CKD-EPI)NonAf (>60 ml/min/1.73 sqM) Glucose (74-99) mg/dL Plasma Lactic Acid Jacinto (0.7-2.0) mmol/L Calcium (8.4-10.2) mg/dL Total Bilirubin (0.2-1.3) mg/dL AST (14-36) U/L ALT (4-34) U/L Alkaline Phosphatase (38-126) U/L Total Protein (6.3-8.2) g/dL Albumin (3.5-5.0) g/dL Urine Color Colorless Urine Appearance Clear (Clear) Urine pH 6.0 (5.0-8.0) Ur Specific [place] 1.007 (1.001-1.035) Urine Protein Negative (Negative) Urine Glucose (UA) Negative (Negative) Urine Ketones Negative (Negative) Urine Blood Large H (Negative) Urine Nitrite Negative (Negative) Urine Bilirubin Negative (Negative) Urine Urobilinogen <2.0 (<2.0) mg/dL Ur Leukocyte Esterase Negative (Negative) Urine RBC 25 H (0-5) /hpf Urine WBC 6 H (0-5) /hpf Urine Bacteria Rare H (None) /hpf Hyaline Casts 1 (0-2) /lpf Urine Mucus Rare H (None) /hpf Disposition <Anupama Edwards - Last Filed: 02/09/23 20:23> Is patient prescribed a controlled substance at d/c from ED?: Yes When asked, does pt state using other controlled substances?: No If prescribed controlled substance>3 days was MAPS reviewed?: Prescribed <3 Days Time of Disposition: 08:23 <Geena Healy - Last Filed: 02/11/23 03:43> Clinical Impression: Ureteral stone, Flank pain Disposition: HOME SELF-CARE Condition: Stable Instructions (If sedation given, give patient instructions): Kidney Stones (ED) Additional Instructions: Please alternate taking the pain medications every 4 hours. Take Zofran as needed for nausea. Take Flomax daily. Follow up with the urologist. Return for any new or worsening symptoms including uncontrolled pain, fevers or you stop ur inating Prescriptions: Tamsulosin [Flomax] 0.4 mg PO DAILY #7 cap HYDROcodone/APAP 10-325MG [Daykin 10-325] 1 tab PO Q4HR PRN 3 Days #18 tab PRN Reason: Pain Ketorolac [Toradol] 10 mg PO Q8HR #15 tab Ondansetron Odt [Zofran Odt] 4 mg PO Q8HR PRN #20 tab PRN Reason: Nausea Referrals: Ivania Stephen MD [Primary Care Provider] - 1-2 days Alvaro Yoo MD [STAFF PHYSICIAN] - 1-2 days
[2023-02-09 21:55] LABS: Basophils % (A) 0 %; Eosinophils # (A) 0.1 k/uL (0-0.7); Eosinophils % (A) 1 %; HCT 40.5 % (34.0-46.0); HGB 13.7 gm/dL (11.4-16.0); Lymphocytes % (A) 19 %; MCH 30.2 pg (25.0-35.0); MCHC 33.9 g/dL (31.0-37.0); MCV 89.1 fL (80.0-100.0); Mean Platelet Volume 7.7; Monocytes # (A) 0.6 k/uL (0-1.0); Monocytes % (A) 6 %; Neutrophils # (A) 7.8 k/uL (1.3-7.7); Neutrophils % (A) 73 %; Platelet Count 321 k/uL (150-450); RBC 4.54 m/uL (3.80-5.40); RDW 13.2 % (11.5-15.5); WBC 10.8 k/uL (3.8-10.6)
[2023-02-09 21:57] LABS: ALT 30 U/L (4-34); AST 31 U/L (14-36); African American GFR (CKD) 50 (>60 ml/min/1.73 sqM); Albumin 4.4 g/dL (3.5-5.0); Alkaline Phosphatase 77 U/L (38-126); Anion Gap 12 mmol/L; Blood Urea Nitrogen 28 mg/dL (7-17); Calcium 9.8 mg/dL (8.4-10.2); Carbon Dioxide 23 mmol/L (22-30); Chloride 104 mmol/L (98-107); Glucose 107 mg/dL (74-99); Non-African American GFR(CKD) 43 (>60 ml/min/1.73 sqM); Potassium 4.2 mmol/L (3.5-5.1); Sodium 139 mmol/L (137-145); Total Bilirubin 0.3 mg/dL (0.2-1.3); Total Protein 7.7 g/dL (6.3-8.2)
[2023-02-10] MEDS ORDERED: MORPHINE SULFATE 4 MG/ML SYRINGE IVP STA (01:24)
[2023-02-10] MEDS ORDERED: ONDANSETRON 4 MG/2 ML VIAL IVP STA (01:24)
[2023-02-10] MEDS ORDERED: SODIUM CHLORIDE 0.9% 1,000 ML IV ONE (01:35)
[2023-02-10 01:42] LABS: Appearance,Urine Clear (Clear); Bacteria,Urine Rare /hpf; Bilirubin,Urine Negative (Negative); Blood,Urine Large (Negative); Color,Urine Colorless; Glucose,Urine (UA) Negative (Negative); Hyaline Casts,Urine 1 /lpf (0-2); Ketones,Urine Negative (Negative); Leukocyte Esterase,Urine Negative (Negative); Mucus,Urine Rare /hpf; Nitrite,Urine Negative (Negative); Protein,Urine Negative (Negative); RBC,Urine 25 /hpf (0-5); Specific Gravity,Urine 1.007 (1.001-1.035); Urobilinogen,Urine <2.0 mg/dL (<2.0); WBC,Urine 6 /hpf (0-5)
[2023-02-10] MEDS ORDERED: MAG HYDROX/AL HYDROX/SIMETH 30 ML, HYOSCYAMINE ELIXIR 10 ML PO STA ×2 (03:51)
--- NOTE | 2023-02-10 07:20 | CT ---
EXAMINATION TYPE: CT abdomen pelvis w con DATE OF EXAM: 02/10/2023 COMPARISON: None HISTORY: Pain CONTRAST: CT scan of the abdomen and pelvis is performed without Oral Contrast and with IV Contrast, patient in jected with 100 mL of Isovue 300. FINDINGS: LUNG BASES-: No visible nodule. No infiltrate. LIVER/GB: The gallbladder is surgically absent. No space occupying hepatic lesion. Prominence of t he intra and extrahepatic biliary tree is likely postoperative in nature. PANCREAS: No inflammation. No distinct mass. SPLEEN: No splenic enlargement. No lesion seen. ADRENALS: No nodule. No thickening. KIDNEYS/BLADDER: There is a 2 mm calculus distal right ureter seen best on image 73 result in mild ri ght-sided hydronephrosis. There is urothelial wall thickening suggesting underlying infection. There is atrophic change of the left kidney with underlying cysts seen. No distinct renal mass. Urinary malcolm dder wall thickening suggests underlying cystitis. BOWEL: Nonvisualization of the appendix. Normal bowel caliber. No inflammation. GENITAL ORGANS: No gross abnormality. LYMPH NODES: No greater than 1cm abdominal or pelvic lymph nodes are appreciated. AORTA: No significant abnormality. OSSEOUS STRUCTURES: No significant abnormality is seen. OTHER: No significant additional abnormality is seen. IMPRESSION: 1. There is a 2 mm calculus distal right ureter seen best on image 73 result in mild right-sided hydr onephrosis. There is urothelial wall thickening suggesting underlying infection.
[2023-02-10] MEDS ORDERED: KETOROLAC 15 MG/ML 1 ML VIAL IVP STA (07:35)
[2023-02-10] MEDS ORDERED: TAMSULOSIN 0.4 MG CAP.ER.24H PO STA (08:17)
[2023-02-10 10:42] VITALS: BP 100/51; PULSE 60; RESP 16; TEMP 97.9
== END 2023-02-10 10:33 | disposition home or self-care (01) ==
LOC: EC 20:18
DX: N13.2 Hydronephrosis with renal and ureteral calculous obstruction (principal); I10 Essential (primary) hypertension; I48.91 Unspecified atrial fibrillation; I25.2 Old myocardial infarction; Z79.82 Long term (current) use of aspirin; Z79.899 Other long term (current) drug therapy
CPT/HCPCS: 36415; 74177; 80053; 81001; 83605; 85025; 96361; 96374; 96375; 99285

== ENCOUNTER → 2023-07-18 | Outpatient (CLI) | payer MEDICARE ==
--- NOTE | 2023-07-18 10:30 | XR ---
EXAMINATION TYPE: XR chest 2V DATE OF EXAM: 07/18/2023 COMPARISON: 12/16/2020 TECHNIQUE: PA and lateral views submitted. HISTORY: Cough FINDINGS: The lungs are clear and there is no pneumothorax, pleural effusion, or focal pneumonia. Heart size normal and no overt failure. Osseous structures demonstrate hypertrophic and degenerative changes of the spine. Hyperexpansion suggests COPD. Atherosclerotic change aorta. Surgical clips gallbladder fos sa. Biapical pleural thickening. IMPRESSION: 1. No acute process.
== END | disposition home or self-care (01) ==
LOC: RADXRMAIN 09:57
PROVIDERS: ATTEND Internal Medicine
DX: J06.9 Acute upper respiratory infection, unspecified (principal)
CPT/HCPCS: 71046

== ENCOUNTER 2024-05-03 22:41 | Emergency (ER) | payer MEDICARE ==
--- NOTE | 2024-05-03 22:59 | ED ---
General Adult HPI - General Chief complaint: Recheck/Abnormal Lab/Rx Stated complaint: Hypertension, Headache Time Seen by Provider: 05/03/24 22:51 Source: patient Mode of arrival: ambulatory Limitations: no limitations - History of Present Illness Initial comments: 73-year-old female presenting with chief complaint of elevated blood pressure. Patient reports that earlier this evening she was feeling very flushed and was having an intense pressure-like headache so she decided to check her blood pressure which she noted to be elevated. States that her headache has improved but she is still feeling flushed. She does have history of hypertension, she currently takes amlodipine besylate/Benazepril, she has been taking her medications as prescribed. She is not having any chest pain, difficulty breathing, blurry vision, abdominal pain, nausea, vomiting, dizziness or weakness. - Related Data Home Medications Medication Instructions Recorded Confirmed Aspirin 81 mg PO DAILY 12/31/13 11/29/21 Ipratropium/Albuterol Sulfate 1 puff INHALATION RT-QID PRN 03/06/17 11/29/21 [Combivent Respimat Inhaler] Nitroglycerin Sl Tabs [Nitrostat] 0.4 mg SUBLINGUAL Q5M PRN 03/06/17 11/29/21 amLODIPine BESYLATE/BENAZEPRIL 1 cap PO DAILY 03/06/17 11/29/21 [amLODIPine BESYLATE/BENAZEPRIL 10-20 MG] Atorvastatin Calcium [Lipitor] 80 mg PO HS 12/16/20 11/29/21 Levothyroxine Sodium [Synthroid] 150 mcg PO DAILY 12/16/20 11/29/21 Propafenone [Rythmol] 75 mg PO BID 12/16/20 11/29/21 Biotin [Biotin Disolve] 5,000 mcg PO DAILY 11/29/21 11/29/21 Calcium Carbonate [Calcium] 1,200 mg PO DAILY 11/29/21 11/29/21 Cyanocobalamin (Vitamin B-12) 1,000 mcg PO DAILY 11/29/21 11/29/21 [Vitamin B-12] Melatonin [Melatonin Tr] 10 mg PO HS PRN 11/29/21 11/29/21 Multivit-Min/FA/Lycopen/Lutein 1 each PO DAILY 11/29/21 11/29/21 [Centrum Silver Tablet] Ubidecarenone [Co Q-10] 400 mg PO DAILY 11/29/21 11/29/21 Previous Rx's Medication Instructions Recorded Apixaban [Eliquis] 5 mg PO BID #60 tab 03/07/17 Ketorolac [Toradol] 10 mg PO Q8HR #15 tab 02/10/23 Ondansetron Odt [Zofran Odt] 4 mg PO Q8HR PRN #20 tab 02/10/23 Tamsulosin [Flomax] 0.4 mg PO DAILY #7 cap 02/10/23 HYDROcodone/APAP 10-325MG [[place] 1 tab PO Q4HR PRN 3 Days #18 tab 02/11/23 10-325] Allergies Allergy/AdvReac Type Severity Reaction Status Date / Time No Known Allergies Allergy Verified 05/03/24 22:45 Review of Systems ROS Statement: Those systems with pertinent positive or pertinent negative responses have been documented in the HPI. ROS Other: All systems not noted in ROS Statement are negative. Past Medical History Past Medical History: Atrial Fibrillation, Hypertension, Myocardial Infarction (VT) Additional Past Medical History / Comment(s): HAD EVENT MONITOR PRIOR TO ADMISSION TO MONITOR FOR AFIB Last Myocardial Infarction Date:: 2004 History of Any Multi-Drug Resistant Organisms: None Reported Past Surgical History: Appendectomy, Cholecystectomy, Heart Catheterization With Stent, Hysterectomy Additional Past Surgical History / Comment(s): cataracts Past Anesthesia/Blood Transfusion Reactions: Postoperative Nausea & Vomiting (PONV) Date of Last Stent Placement:: 2006 Past Psychological History: No Psychological Hx Reported Smoking Status: Never smoker Past Alcohol Use History: Occasional Past Drug Use History: None Reported - Past Family History Mother Family Medical History: Cancer, Deep Vein Thrombosis (DVT) Brother(s) Family Medical History: Cancer Father Family Medical History: Congestive Heart Failure (CHF), Hypertension Sister(s) Family Medical History: Hypertension General Exam Limitations: no limitations General appearance: alert, in no apparent distress Head exam: Present: atraumatic, normocephalic, normal inspection Eye exam: Present: normal appearance, EOMI Neck exam: Present: normal inspection. Absent: meningismus Respiratory exam: Present: normal lung sounds bilaterally. Absent: respiratory distress, wheezes, rales, rhonchi, stridor Cardiovascular Exam: Present: regular rate, normal rhythm, normal heart sounds. Absent: systolic murmur, diastolic murmur, rubs, gallop, clicks Neurological exam: Present: alert, oriented X3 Psychiatric exam: Present: normal affect, normal mood Skin exam: Present: warm, dry Course Vital Signs 05/03/24 05/03/24 05/04/24 22:42 23:00 00:15 Temperature 98.4 F Pulse Rate 90 73 57 L Respiratory 17 16 14 Rate Blood Pressure 181/84 159/71 147/65 O2 Sat by Pulse 97 99 98 Oximetry 05/04/24 01:07 Temperature 98.7 F Pulse Rate 61 Respiratory 18 Rate Blood Pressure 142/67 O2 Sat by Pulse 97 Oximetry Medical Decision Making - Medical Decision Making Was pt. sent in by a medical professional or institution (, PA, CARROT GRADER INSPECTOR, urgent care, hospital, or [facility]...) When possible be specific @ -No Did you speak to anyone other than the patient for history (EMS, parent, family, police, friend...)? What history was obtained from this source @ -No Did you review nursing and triage notes (agree or disagree)? Why? @ -I reviewed and agree with nursing and triage notes Were old charts reviewed (outside hosp., previous admission, EMS record, old EKG, old radiological studies, urgent care reports/EKG's, [facility] records)? Report findings @ -No old charts were reviewed Differential Diagnosis (chest pain, altered mental status, abdominal pain women, abdominal pain men, vaginal bleeding, weakness, fever, dyspnea, syncope, headache, dizziness, GI bleed, back pain, seizure, CVA, palpatations, mental health, musculoskeletal)? @ -MDM Differential Headache: Migraine, tension, cluster, carbon monoxide, central venous thrombosis, pension karma temporal arteritis, acute closure glaucoma, intercranial hemorrhage, mastoiditis, sinusitis, head injury this is not meant to be an all-inclusive list. EKG interpreted by me (3pts min.). @ -EKG shows sinus rhythm ventricular rate 70. MI interval 202. QRS 104. QT 392. QTc 413. X-rays interpreted by me (1pt min.). @ -Chest x-ray shows mild cardiomegaly. Atherosclerotic disease. No consolidative changes or pleural effusions. CT interpreted by me (1pt min.). @ -None done U/S interpreted by me (1pt. min.). @ -None done What testing was considered but not performed or refused? (CT, X-rays, U/S, labs)? Why? @ -None What meds were considered but not given or refused? Why? @ -None Did you discuss the management of the patient with other professionals (professionals i.e. , PA, CARROT GRADER INSPECTOR, lab, RT, psych nurse, social worker masters, online user experience strategist, teacher, chemical instrumentation officer, piano case maker)? Give summary @ -No Was smoking cessation discussed for >3mins.? @ -No Was critical care preformed (if so, how long)? @ -No Were there social determinants of health that impacted care today? How? (Homelessness, low income, unemployed, alcoholism, drug addiction, smith sportation, low edu. Level, literacy, decrease access to med. care, snf, rehab)? @ -No Was there de-escalation of care discussed even if they declined (Discuss DNR or withdrawal of care, Hospice)? DNR status @ -No What co-morbidities impacted this encounter? (DM, HTN, Smoking, COPD, CAD, Cancer, CVA, ARF, Chemo, Hep., AIDS, mental health diagnosis, sleep apnea, morbid obesity)? @ -None Was patient admitted / discharged? Hospital course, mention meds given and route, prescriptions, significant lab abnormalities, going to OR and other pertinent info. @ -73-year-old female presenting with chief complaint of elevated blood pressure. This evening she was feeling flushed and had a headache. Headache has improved but she is still feeling a bit flushed. History of hypertension and takes her antihypertensives as prescribed. History and physical examination are conducted. She is given Tylenol for her headache. Her blood pressure has been coming down on its own without intervention. Her initial upon arrival is 181/84, it then comes down to 159/71. White count 16.1, may be reactive. Negative troponin. Urine shows no infectious process or bleeding. She is negative for influenza, RSV, COVID. Chest x-ray shows no consolidation. Patient is having no abdominal pain no URI-like symptoms no fever no vomiting and no other symptoms to indicate infection. Her headache has improved. Her blood pressure is also improved to 142/67. She is feeling well at this time. She is instructed to keep a blood pressure journal at home and to follow-up with her PCP for recheck of her blood pressure and repeat labs. She is educated on today's findings. Follow-up with PCP. Report back to ER with any new or worsening symptoms. Discussed return parameters and answered all questions. Devendra georges conveyed verbal understanding and agreed to the plan. I discussed this case in detail with my attending Dr. Lu Undiagnosed new problem with uncertain prognosis? @ -No Drug Therapy requiring intensive monitoring for toxicity (Heparin, Nitro, Insulin, Cardizem)? @ -No Were any procedures done? @ -No Diagnosis/symptom? @ -Hypertension Acute, or Chronic, or Acute on Chronic? @ -Acute on chronic Uncomplicated (without systemic symptoms) or Complicated (systemic symptoms)? @ -Complicated Side effects of treatment? @ -No Exacerbation, Progression, or Severe Exacerbation? @ -No Poses a threat to life or bodily function? How? (Chest pain, USA, VT, pneumonia, PE, COPD, DKA, ARF, appy, cholecystitis, CVA, Diverticulitis, Homicidal, Suicidal, threat to staff... and all critical care pts) @ -No immediate threat at this time, long-term uncontrolled hypertension does pose a threat - Lab Data Result diagrams: 05/03/24 23:09 05/03/24 23:09 Lab Results 05/03/24 05/03/24 05/03/24 Range/Units 22:48 23:09 23:09 WBC 16.1 H (3.8-10.6) k/uL RBC 4.73 (3.80-5.40) m/uL Hgb 13.7 (11.4-16.0) gm/dL Hct 41.5 (34.0-46.0) % MCV 87.8 (80.0-100.0) fL MCH 29.1 (25.0-35.0) pg MCHC 33.1 (31.0-37.0) g/dL RDW 13.6 (11.5-15.5) % Plt Count 322 (150-450) k/uL MPV 7.6 Neutrophils % 84 % Lymphocytes % 10 % Monocytes % 4 % Eosinophils % 1 % Basophils % 0 % Neutrophils # 13.6 H (1.3-7.7) k/uL Lymphocytes # 1.7 (1.0-4.8) k/uL Monocytes # 0.6 (0-1.0) k/uL Eosinophils # 0.1 (0-0.7) k/uL Basophils # 0.0 (0-0.2) k/uL PT 10.4 (10.0-12.5) sec INR 0.9 (<1.2) APTT 25.3 (22.0-30.0) sec Sodium (137-145) mmol/L Potassium (3.5-5.1) mmol/L Chloride (98-107) mmol/L Carbon Dioxide (22-30) mmol/L Anion Gap mmol/L BUN (7-17) mg/dL Creatinine (0.52-1.04) mg/dL Est GFR (CKD-EPI)AfAm (>60 ml/min/1.73 sqM) Est GFR (CKD-EPI)NonAf (>60 ml/min/1.73 sqM) Glucose (74-99) mg/dL Calcium (8.4-10.2) mg/dL Magnesium (1.6-2.3) mg/dL Total Bilirubin (0.2-1.3) mg/dL AST (14-36) U/L ALT (4-34) U/L Alkaline Phosphatase (38-126) U/L Troponin I (0.000-0.034) ng/mL Total Protein (6.3-8.2) g/dL Albumin (3.5-5.0) g/dL Urine Color Colorless Urine Appearance Clear (Clear) Urine pH 6.5 (5.0-8.0) Ur Specific [place] 1.003 (1.001-1.035) Urine Protein Negative (Negative) Urine Glucose (UA) Negative (Negative) Urine Ketones Negative (Negative) Urine Blood Negative (Negative) Urine Nitrite Negative (Negative) Urine Bilirubin Negative (Negative) Urine Urobilinogen <2.0 (<2.0) mg/dL Ur Leukocyte Esterase Negative (Negative) Influenza Type A (PCR) (Not Detectd) Influenza Type B (PCR) (Not Detectd) RSV (PCR) (Not Detectd) SARS-CoV-2 (PCR) (Not Detectd) 05/03/24 05/03/24 05/03/24 Range/Units 23:09 23:09 23:47 WBC (3.8-10.6) k/uL RBC (3.80-5.40) m/uL Hgb (11.4-16.0) gm/dL Hct (34.0-46.0) % MCV (80.0-100.0) fL MCH (25.0-35.0) pg MCHC (31.0-37.0) g/dL RDW (11.5-15.5) % Plt Count (150-450) k/uL MPV Neutrophils % % Lymphocytes % % Monocytes % % Eosinophils % % Basophils % % Neutrophils # (1.3-7.7) k/uL Lymphocytes # (1.0-4.8) k/uL Monocytes # (0-1.0) k/uL Eosinophils # (0-0.7) k/uL Basophils # (0-0.2) k/uL PT (10.0-12.5) sec INR (<1.2) APTT (22.0-30.0) sec Sodium 139 (137-145) mmol/L Potassium 4.3 (3.5-5.1) mmol/L Chloride 105 (98-107) mmol/L Carbon Dioxide 20 L (22-30) mmol/L Anion Gap 14 mmol/L BUN 33 H (7-17) mg/dL Creatinine 0.81 (0.52-1.04) mg/dL Est GFR (CKD-EPI)AfAm 85 (>60 ml/min/1.73 sqM) Est GFR (CKD-EPI)NonAf 73 (>60 ml/min/1.73 sqM) Glucose 126 H (74-99) mg/dL Calcium 9.6 (8.4-10.2) mg/dL Magnesium 2.1 (1.6-2.3) mg/dL Total Bilirubin 0.3 (0.2-1.3) mg/dL AST 25 (14-36) U/L ALT 31 (4-34) U/L Alkaline Phosphatase 70 (38-126) U/L Troponin I <0.012 (0.000-0.034) ng/mL Total Protein 7.4 (6.3-8.2) g/dL Albumin 4.7 (3.5-5.0) g/dL Urine Color Urine Appearance (Clear) Urine pH (5.0-8.0) Ur Specific [place] (1.001-1.035) Urine Protein (Negative) Urine Glucose (UA) (Negative) Urine Ketones (Negative) Urine Blood (Negative) Urine Nitrite (Negative) Urine Bilirubin (Negative) Urine Urobilinogen (<2.0) mg/dL Ur Leukocyte Esterase (Negative) Influenza Type A (PCR) Not Detected (Not Detectd) Influenza Type B (PCR) Not Detected (Not Detectd) RSV (PCR) Not Detected (Not Detectd) SARS-CoV-2 (PCR) Not Detected (Not Detectd) Disposition Clinical Impression: Hypertension Disposition: HOME SELF-CARE Condition: Good Instructions (If sedation given, give patient instructions): Hypertension (ED) Additional Instructions: Follow Up with PCP. Report back to ER with any new or worsening symptoms. You have a blood pressure diary, take your blood pressure at the same time of day for several days and bring this to your PCP. Have your PCP recheck your labs to make sure your labs have come back down to normal. Is patient prescribed a controlled substance at d/c from ED?: No Referrals: Ivania Stephen MD [Primary Care Provider] - 1-2 days Time of Disposition: 00:55
[2024-05-03 23:20] LABS: Basophils % (A) 0 %; Eosinophils # (A) 0.1 k/uL (0-0.7); Eosinophils % (A) 1 %; HCT 41.5 % (34.0-46.0); HGB 13.7 gm/dL (11.4-16.0); Lymphocytes # (A) 1.7 k/uL (1.0-4.8); Lymphocytes % (A) 10 %; MCH 29.1 pg (25.0-35.0); MCHC 33.1 g/dL (31.0-37.0); MCV 87.8 fL (80.0-100.0); Mean Platelet Volume 7.6; Monocytes # (A) 0.6 k/uL (0-1.0); Monocytes % (A) 4 %; Neutrophils # (A) 13.6 k/uL (1.3-7.7); Neutrophils % (A) 84 %; Platelet Count 322 k/uL (150-450); RBC 4.73 m/uL (3.80-5.40); RDW 13.6 % (11.5-15.5); WBC 16.1 k/uL (3.8-10.6)
[2024-05-03 23:28] LABS: ALT 31 U/L (4-34); AST 25 U/L (14-36); African American GFR (CKD) 85 (>60 ml/min/1.73 sqM); Albumin 4.7 g/dL (3.5-5.0); Alkaline Phosphatase 70 U/L (38-126); Anion Gap 14 mmol/L; Blood Urea Nitrogen 33 mg/dL (7-17); Calcium 9.6 mg/dL (8.4-10.2); Carbon Dioxide 20 mmol/L (22-30); Chloride 105 mmol/L (98-107); Glucose 126 mg/dL (74-99); Magnesium 2.1 mg/dL (1.6-2.3); Non-African American GFR(CKD) 73 (>60 ml/min/1.73 sqM); Potassium 4.3 mmol/L (3.5-5.1); Sodium 139 mmol/L (137-145); Total Bilirubin 0.3 mg/dL (0.2-1.3); Total Protein 7.4 g/dL (6.3-8.2)
[2024-05-03 23:41] LABS: INR 0.9 (<1.2); Partial Thromboplastin Time 25.3 sec (22.0-30.0); Prothrombin Time 10.4 sec (10.0-12.5)
[2024-05-03] MEDS: ACETAMINOPHEN TAB 325 MG TAB PO STA (23:45)
[2024-05-03 23:53] LABS: Appearance,Urine Clear (Clear); Bilirubin,Urine Negative (Negative); Blood,Urine Negative (Negative); Color,Urine Colorless; Glucose,Urine (UA) Negative (Negative); Ketones,Urine Negative (Negative); Leukocyte Esterase,Urine Negative (Negative); Nitrite,Urine Negative (Negative); PH, Urine 6.5 (5.0-8.0); Protein,Urine Negative (Negative); Specific Gravity,Urine 1.003 (1.001-1.035); Urobilinogen,Urine <2.0 mg/dL (<2.0)
--- NOTE | 2024-05-04 00:09 | XR ---
EXAM: XR Chest, 2 Views CLINICAL HISTORY: ITS.REASON XR Reason: hypertension TECHNIQUE: Frontal and lateral views of the chest. COMPARISON: Chest x-ray of 07/18/2023. FINDINGS: Lungs: Unremarkable. No consolidative changes or pleural effusions. Pleural space: See above. Heart: Mild cardiomegaly. Mediastinum: Unremarkable. Normal mediastinal contour. Bones/joints: Osseous structures and soft tissues are unremarkable. Mild to moderate degenerative disc disease of the thoracic spine. No acute fracture. Vasculature: Atherosclerotic disease. Upper abdomen: Status post cholecystectomy. IMPRESSION: 1. Mild cardiomegaly. 2. Atherosclerotic disease. 3. No consolidative changes or pleural effusions.
[2024-05-04 01:09] VITALS: BP 142/67; PULSE 61; RESP 18; TEMP 98.7
== END 2024-05-04 01:09 | disposition home or self-care (01) ==
LOC: EC 22:41
DX: I11.9 Hypertensive heart disease without heart failure (principal); I25.2 Old myocardial infarction; I48.91 Unspecified atrial fibrillation; Z11.52 Encounter for screening for COVID-19
CPT/HCPCS: 36415; 71046; 80053; 81003; 83735; 84484; 85025; 85610; 85730; 87636; 93005; 99284

== ENCOUNTER → 2024-09-04 | Outpatient (CLI) | payer MEDICARE ==
--- NOTE | 2024-09-04 11:09 | XR ---
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 FINDINGS: No evidence of any acute osseous pathology. No evidence of loss of vertebral body height i s seen. There is normal alignment of the lumbar vertebral bodies. Scattered disc space narrowing. Mul tilevel marginal osteophyte formation throughout the visualized spine. There is facet joint arthropat hy throughout the spine. Moderate L5-S1 neural foraminal stenosis. Atherosclerosis of the arterial va scular tear. Osteoarthrosis of the spinous processes. Right upper quadrant: Dissecting clips. IMPRESSION: 1. No acute fracture. 2. Moderate multilevel disc degeneration which has progressed from prior. 3. 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 [facility], , 09/04/2024 11:07 AM
== END | disposition home or self-care (01) ==
LOC: RADXRMAIN 10:46
PROVIDERS: ATTEND Internal Medicine
DX: M51.369 Other intervertebral disc degeneration, lumbar region without mention of lumbar back pain or lower extremity pain (principal); M47.816 Spondylosis without myelopathy or radiculopathy, lumbar region
CPT/HCPCS: 72100